=== PATIENT | male | born 1990 | race Caucasian/White ===

== ENCOUNTER 2020-02-14 16:36 | Emergency (ER) | payer SELFPAY ==
--- NOTE | 2020-02-14 21:36 | ER ---
Nurse's Notes [facility] Name: Tristen Carbajal Age: 29 yrs Sex: Male : 1990 Arrival Date: 02/14/2020 Time: 16:38 Bed Waiting Private MD: Diagnosis: Presentation: 02/13 16:39 Chief complaint: Patient states: right forearm infection from 2 weeks ago after cutting sv himself with a razor, and never got sutures for it. Coronavirus screen: Client denies travel out of the [place] in the last 14 days. At this time, the client does not indicate any symptoms associated with coronavirus-19. Ebola Screen: No symptoms or risks identified at this time. Risk Assessment: Do you want to hurt yourself or someone else? Patient reports no desire to harm self or others. Onset of symptoms was January 2020. 16:39 Method Of Arrival: Ambulatory sv 16:39 Acuity: LANDY 3 sv 16:41 Initial Sepsis Screen: Does the patient meet any 2 criteria? HR > 90 bpm. No. Patient's sv initial sepsis screen is negative. Does the patient have a suspected source of infection? Yes: Skin breakdown/wound. Triage Assessment: 16:43 General: Appears in no apparent distress. uncomfortable, Behavior is cooperative, sv appropriate for age, anxious, restless. Pain: Complains of pain in right arm and left arm. Neuro: Level of Consciousness is awake, alert, obeys commands, Oriented to person, place, time, situation, Gait is steady. Respiratory: Respiratory effort is even, unlabored. Historical: - Allergies: 16:41 Haldol; sv - PMHx: 16:41 Bipolar disorder; Depression; sv Assessment: 19:44 Reassessment: called out from the lobby to recheck vitals, no answer. ca1 Vital Signs: 16:41 BP 149 / 76; Pulse 112; Resp 20; Temp 98.8; Pulse Ox 99% ; Weight 90.72 kg; Height 5 sv ft. 6 in. (167.64 cm); 16:41 Body Mass Index 32.28 (90.72 kg, 167.64 cm) sv ED Course: 16:38 Patient arrived in ED. rg4 16:39 Arm band placed on. sv 16:41 Triage completed. sv 21:35 Patient's name was called from ER lobby. No response. Unable to locate patient. Will ca1 disposition as left without being seen by a provider. Administered Medications: No medications were administered Outcome: 21:35 Patient left the ED. ca1 Signatures: Jaquelin Seo RN RN Lesvia Phelps rg4 Елена Richardson RN RN ca1 Corrections: (The following items were deleted from the chart) 16:43 16:41 Pulse 112bpm; Resp 20bpm; Pulse Ox 99%; Temp 98.8F; 90.72 kg; Height 5 ft. 6 in.; sv BMI: 32.2; sv 16:44 16:39 Acuity: LANDY 4 sv sv
[2020-02-14 22:56] VITALS: BP 149/76; TEMP 98.8; O2SAT 99
== END 2020-02-14 21:35 | disposition left against medical advice (07) ==
LOC: ER 16:36
DX: Z53.21 Procedure and treatment not carried out due to patient leaving prior to being seen by health care provider (principal)
CPT/HCPCS: 99281

== ENCOUNTER 2020-02-16 09:21 | Inpatient (IN) | payer OTHER ==
[2020-02-16] MEDS ORDERED: NA CHLORIDE 0.9% 1,000 ML ONE ×3 (09:54→19:52)
[2020-02-16] MEDS ORDERED: RSI MEDICATION KIT IV ONE (09:54)
[2020-02-16] MEDS ORDERED: propofoL 1,000 MG/100 ML VIAL IV ONE ×3 (09:55→21:52)
[2020-02-16 10:01] LABS: Absolute Lymphocytes (CBC) 1.8 K/uL (0.7-4.9); Basophils % 0.4 % (0-1.3); Hematocrit 31.2 % (39.6-49.0); Lymphocytes % 19.8 % (15.3-44.8); MPV 8.5 fL (7.6-11.3); RBC Red Blood Cell Count 3.89 M/uL (4.33-5.43)
[2020-02-16] MEDS ORDERED: KETAMINE HCL 500 MG/5 ML VIAL ONE ×2 (10:03→17:05)
[2020-02-16 10:05] LABS: Protime INR 1.1
[2020-02-16 10:23] LABS: ALT/SGPT 40 U/L (12-78); AST/SGOT 67 U/L (15-37); Albumin 3.9 g/dL (3.4-5.0); Alkaline Phosphatase 93 U/L (45-117); BUN Blood Urea Nitrogen 16 mg/dL (7-18); Bicarbonate 25 mmol/L (21-32); Bilirubin Direct < 0.1 mg/dL (0-0.2); Bilirubin Total 0.4 mg/dL (0.2-1.0); Glucose Level 94 mg/dL (74-106); Potassium 3.3 mmol/L (3.5-5.1); Protein, Total 7.1 g/dL (6.4-8.2); Sodium Level 142 mmol/L (136-145)
[2020-02-16 10:41] LABS: Barbiturates NEGATIVE (NEGATIVE); Benzodiazepines POSITIVE (NEGATIVE); Cocaine NEGATIVE (NEGATIVE); METHAMPHETAM POSITIVE (NEGATIVE); Methadone NEGATIVE (NEGATIVE); Opiates NEGATIVE (NEGATIVE); Phencyclidine NEGATIVE (NEGATIVE); THC Cannibis POSITIVE (NEGATIVE)
[2020-02-16 11:00] LABS: Urine Blood NEGATIVE (NEG); Urine Glucose NEGATIVE (NEG); Urine Protein TRACE (NEG); Urine Specific Gravity >1.030 (1.005-1.030); Urine pH 5.5 (5.0-7.0)
[2020-02-16] MEDS ORDERED: ROCURONIUM 50 MG/5 ML VIAL IV ONE ×5 (11:05→17:05)
--- NOTE | 2020-02-16 11:18 | RAD REPORT ---
EXAM DESCRIPTION: RAD - Chest Single View - 02/16/2020 10:32 am CLINICAL HISTORY: post intubation TECHNIQUE: AP portable chest image was obtained 02/16/2020 10:32 paredes supine positioning . FINDINGS: Endotracheal tube is in place with the tip at the T3-4 level, top of the aortic arch. NG t ube extends below the diaphragm with the tip off the field of view. No pulmonary edema or focal lung parenchymal process seen. Heart and vasculature are normal. No measu rable pleural effusion and no pneumothorax. No acute bony abnormality seen. No acute aortic findings suspected. IMPRESSION: ET tube and NG tube in good position. No pulmonary edema, failure or other acute chest finding identifiable.
[2020-02-16] MEDS ORDERED: CEFAZOLIN/SWI 1gm 1 GM/10 ML SYR ONE (11:51)
--- NOTE | 2020-02-16 12:17 | EDPHYS ---
Physician Documentation [facility] Name: Tristen Carbajal Age: 29 yrs Sex: Male : 1990 Arrival Date: 02/16/2020 Time: 09:33 Bed 6 Private MD: ED Physician Som Abdullahi HPI: 02/15 11:32 This 29 yrs old Male presents to ER via EMS with complaints of AMS, SI. jr8 11:32 EMS reports being called out after police was on scene for man wondering on rode with jr8 multiple cuts to body who was combative on scene shouting that he wanted to kill himself. EMS stated that after he was detained by police started to yell at them and say he was going to cut them as well. Patient had razor blades in mouth that they had to take out. Was chemically restrained on scene with ketamine, versed, and ativan. Police had applied tourniquet to left arm for steady continuous bleeding . Onset: The symptoms/episode began/occurred acutely, today. It is unknown whether or not the patient has had similar symptoms in the past. It is unknown whether or not the patient has recently seen a physician. Historical: - Allergies: 10:02 Unable to obtain; ph - Home Meds: 10:02 Unable to obtain [Active]; ph - PMHx: 10:02 Unable to obtain; ph - PSHx: 10:02 Unable to obtain; ph - Immunization history:: Adult Immunizations unknown. - Social history:: Smoking status: unknown. ROS: 11:32 Unable to obtain ROS due to altered mental status. jr8 Exam: 11:32 Cardiovascular: Rate: normal, Rhythm: regular, Pulses: Pulses are 2+ in right radial jr8 artery, right dorsalis pedis artery, left radial artery and left dorsalis pedis artery. 11:32 Respiratory: the patient does not display signs of respiratory distress, Respirations: normal, Breath sounds: are clear throughout, no bronchial sounds, no decreased breath sounds, no rales, rhonchi, no stridor, no wheezing. 11:32 Abdomen/GI: Inspection: abdomen appears normal, Bowel sounds: active, Palpation: soft, in all quadrants. 11:32 Back: no signs of trauma. No step offs . 11:32 Musculoskeletal/extremity: ROM: intact in all extremities, Pulses: noted to be 2+ in the right radial artery, right dorsalis pedis artery, left radial artery and left dorsalis pedis artery, Perfusion: the patient is normally perfused throughout, pink, warm. 11:32 Skin: Multiple old and new lacerations noted to bilateral neck and upper extremities. Bleeding controlled to left arm without tourniquet. Largest laceration about 4 cm in length . 11:32 Neuro: Orientation: Not oriented to person, place, time, situation, Mentation: confused, unable to follow commands, seizure activity, is not displayed by the patient, Abnormal movements: there are no abnormal movements. Vital Signs: 09:56 BP 146 / 113; Pulse 101; Resp 18; Temp 97.9; Pulse Ox 100% on 30% FiO2 ETT vent; Weight tw2 80 kg; 10:56 BP 125 / 86; Pulse 84; Resp 14; Pulse Ox 100% on ETT vent; tw2 11:45 BP 103 / 62; Pulse 81; Resp 14; Pulse Ox 100% on ETT vent; tw2 12:45 BP 106 / 75; Pulse 75; Resp 14; Pulse Ox 100% on ETT vent; tw2 13:15 BP 117 / 83; Pulse 98; Resp 16; Pulse Ox 100% on 30% FiO2 ETT vent; ph 13:45 BP 121 / 85; Pulse 92; Resp 18; Pulse Ox 100% on 30% FiO2 ETT vent; ph 14:15 BP 139 / 100; Pulse 94; Resp 18; Temp 97.5(TE); Pulse Ox 100% on 30% FiO2 ETT vent; ph 14:57 BP 119 / 84; Pulse 85; Resp 18; Pulse Ox 100% on 30% FiO2 ETT vent; ph 15:30 BP 121 / 88; Pulse 85; Resp 18; Pulse Ox 100% on 30% FiO2 ETT vent; ph 16:00 BP 120 / 89; Pulse 91; Resp 18; Pulse Ox 100% on 30% FiO2 ETT vent; ph 16:30 BP 118 / 88; Pulse 88; Resp 18; Pulse Ox 100% on 30% FiO2 ETT vent; ph 17:12 BP 132 / 87; Pulse 94; Resp 16; Pulse Ox 100% on 30% FiO2 ETT vent; ph 17:45 BP 126 / 92; Pulse 89; Resp 16; Temp 97.6(TE); Pulse Ox 100% on ETT vent; tw2 18:00 BP 132 / 91; Pulse 88; Resp 16; Pulse Ox 100% on ETT vent; tw2 18:15 BP 121 / 82; Pulse 86; Resp 16; Pulse Ox 100% on ETT vent; tw2 Ventilator: 09:56 Fi02: 30%; Rate: 16min; T.V.: 550ml; Peep: 5cm; ET tube: 7.5 mm (Oral); tw2 09:56 per Zohreh,RT tw2 MDM: 10:04 Patient medically screened. jr8 12:14 Data reviewed: vital signs, nurses notes, lab test result(s), EKG, radiologic studies, jr8 plain films. 12:14 Data interpreted: Pulse oximetry: on ventilator is 100 %. Interpretation: normal. jr8 Counseling: I had a detailed discussion with the patient and/or guardian regarding: the historical points, exam findings, and any diagnostic results supporting the discharge/admit diagnosis, lab results, radiology results, the need for further work-up and treatment in the hospital. 02/15 09:42 Order name: Glucose, Ancillary Testing; Complete Time: 10:37 EDMS 02/15 09:54 Order name: Acetaminophen; Complete Time: 10:37 ph 02/15 09:54 Order name: Basic Metabolic Panel; Complete Time: 10:37 ph 02/15 09:54 Order name: CBC with Diff; Complete Time: 10:37 ph 02/15 09:54 Order name: ETOH Level; Complete Time: 10:37 ph 02/15 09:54 Order name: Hepatic Function; Complete Time: 10:37 ph 02/15 09:54 Order name: PT-INR; Complete Time: 10:37 ph 02/15 09:54 Order name: Ptt, Activated; Complete Time: 10:37 ph 02/15 09:54 Order name: Salicylate; Complete Time: 10:37 ph 02/15 09:54 Order name: Urine Drug Screen; Complete Time: 11:07 ph 02/15 09:54 Order name: Type And Screen; Complete Time: 16:54 ph 02/15 10:20 Order name: Urine Dipstick--Ancillary (enter results); Complete Time: 11:07 bd 02/15 11:07 Order name: Antibody Identification; Complete Time: 16:54 EDMS 02/15 11:25 Order name: Hemoglobin; Complete Time: 12:10 jr8 02/15 10:05 Order name: XRAY Chest (1 view); Complete Time: 11:23 jr8 02/15 12:14 Order name: XRAY Abdomen 1 View (KUB) jr8 02/15 13:00 Order name: RAD; Complete Time: 13:18 EDMS 02/15 13:11 Order name: ABO/RH no charge; Complete Time: 13:18 EDMS 02/15 16:29 Order name: Antigen type; Complete Time: 16:54 EDMS 02/15 20:25 Order name: Hemoglobin; Complete Time: 20:27 EDMS 02/15 20:25 Order name: Hematocrit; Complete Time: 20:27 EDMS 02/15 21:30 Order name: Glucose, Ancillary Testing; Complete Time: 21:36 EDMS 02/16 06:22 Order name: Comprehensive Metabolic Panel; Complete Time: 09:13 EDMS 02/16 06:22 Order name: Magnesium; Complete Time: 09:13 EDMS 02/16 06:31 Order name: CBC with Automated Diff; Complete Time: 09:13 EDMS 02/16 09:04 Order name: RAD; Complete Time: 09:13 EDMS 02/16 16:54 Order name: CORONAVIRUS EDMS 02/16 17:53 Order name: SARS-COV-2 RT PCR; Complete Time: 17:55 EDMS 02/15 09:54 Order name: EKG; Complete Time: 09:54 ph 02/15 09:54 Order name: EKG - Nurse/Tech; Complete Time: 10:39 ph 02/15 09:54 Order name: IV Saline Lock; Complete Time: 12:36 ph 02/15 09:54 Order name: Labs collected and sent; Complete Time: 12:36 ph 02/15 09:54 Order name: Urine Dipstick-Ancillary (obtain specimen); Complete Time: 10:38 ph 02/15 10:06 Order name: Brown; Complete Time: 10:30 jr8 02/15 10:06 Order name: NG Tube; Complete Time: 10:29 jr8 02/15 10:06 Order name: Restraint:Violent/Self Destructive (Adult:18yo or >); Complete Time: 10:29 jr8 02/15 10:37 Order name: Restraint:Non-Violent; Complete Time: 10:38 jr8 02/15 11:00 Order name: Labs - recollect needed: collect abo\E\rh no charge; Complete Time: 12:31 bd 02/15 12:46 Order name: CONS Physician Consult EDKS 02/16 11:00 Order name: Diet Regular; Complete Time: 11:01 ph Administered Medications: 09:42 Drug: NS 0.9% 1000 ml Route: IV; Rate: 1 bolus; Site: right hand; ph 11:30 Follow up: Response: No adverse reaction; IV Status: Completed infusion; IV Intake: tw2 1000ml 09:43 Drug: Etomidate 20 mg Route: IVP; Site: right hand; ph 09:47 Follow up: Response: No adverse reaction; Marked relief of symptoms tw2 09:43 Drug: Rocuronium 80 mg Route: IVP; Site: right hand; ph 12:37 Follow up: Response: No adverse reaction; Marked relief of symptoms tw2 09:46 Drug: Ketamine 2 mg/kg {Note: 200 mg dose given per Carter R, PA.} Route: IVP; Site: ph right hand; 12:36 Follow up: Response: No adverse reaction; Marked relief of symptoms tw2 09:50 Drug: Propofol 5 mcg/kg/min {Note: initiated at 10 mcg/kg/min.} Route: IV; Rate: ph calculated rate; Site: right hand; 10:52 Drug: Rocuronium 80 mg Route: IVP; Site: right jugular; ph 11:42 Follow up: Response: No adverse reaction tw2 11:35 Drug: Ancef 1 grams Route: IVPB; Site: right jugular; tw2 11:41 Follow up: Response: No adverse reaction; IV Status: Completed infusion; IV Intake: [id number] 11:41 Drug: NS 0.9% 1000 ml Route: IV; Rate: 125 ml/hr; Site: right hand; tw2 19:35 Follow up: Response: No adverse reaction; IV Status: Infusion continued upon admission ph 12:34 Drug: Ketamine 2 mg/kg {Note: 200 mg given per Carter R., PA.} Route: IVP; Site: right ph jugular; 12:40 Follow up: Response: No adverse reaction; Marked relief of symptoms ph 13:14 Drug: Rocuronium 100 mg Route: IVP; Site: right jugular; ph 13:20 Follow up: Response: No adverse reaction; Patient is sedated ph 13:30 Follow up: Response: No adverse reaction; Marked relief of symptoms ph 14:35 Drug: Rocuronium 80 mg Route: IVP; Site: right jugular; ph 14:40 Follow up: Response: No adverse reaction; Patient is sedated ph 15:44 Drug: Rocuronium 60 mg Route: IVP; Site: right jugular; ph 15:50 Follow up: Response: No adverse reaction; Patient is sedated ph 16:54 Drug: Rocuronium 50 mg Route: IVP; Site: right jugular; ph 17:00 Follow up: Response: No adverse reaction; Patient is sedated ph 16:55 Drug: Ketamine 2 mg/kg {Note: 200 mg given per PA. Carter} Route: IVP; Site: right ph jugular; 17:00 Follow up: Response: No adverse reaction; Patient is sedated ph 18:00 Drug: Versed 3 mg Route: IVP; Site: right jugular; tw2 18:28 Follow up: Response: No adverse reaction; Marked relief of symptoms tw2 19:30 Drug: Versed 3 mg Route: IVP; Site: right jugular; 22:05 Follow up: Response: No adverse reaction Disposition: 02/17 06:09 Co-signature as Attending Physician, Som Abdullahi MD I agree with the assessment and kdr plan of care. Disposition: 02/16/20 12:16 Hospitalization ordered by Edson Morgan for Inpatient Admission. Preliminary diagnosis are Poisoning by amphetamines, undetermined, Suicide attempt, Homicidal and suicidal ideations. - Bed requested for [facility] ER HOLD. - Status is Inpatient Admission. mg2 - Condition is Fair. - Problem is new. - Symptoms have improved. Critical care time excluding procedures: 02/16 20:47 Critical care time: Bedside Care: 20 minutes, Consultation: 15 minutes, Family jr8 Intervention: 10 minutes. Total time: 45 minutes Signatures: Dispatcher [employer] EDMS Verito Rose Kevin, MD MD [facility] [address] Carter Soto PA PA jr8 Hall, Patricia, RN RN Carmelina Mendoza RN RN 2 Derian Guerrero Ag Adams RN RN mg2 Corrections: (The following items were deleted from the chart) 02/15 17:59 12:16 Hospitalization Ordered by Edson Morgan MD for Inpatient Admission. Preliminary bd diagnosis is Poisoning by amphetamines, undetermined; Suicide attempt; Homicidal and suicidal ideations. Bed requested for Intensive Care Unit. Status is Inpatient Admission. Condition is Fair. Problem is new. Symptoms have improved. jr8 02/16 21:20 02/15 17:59 02/16/2020 12:16 Hospitalization Ordered by Edson Morgan MD for Inpatient mg2 Admission. Preliminary diagnosis is Poisoning by amphetamines, undetermined; Suicide attempt; Homicidal and suicidal ideations. Bed requested for [facility] ER HOLD. Status is Inpatient Admission. Condition is Fair. Problem is new. Symptoms have improved. bd
--- NOTE | 2020-02-16 12:17 | ER ---
Nurse's Notes [facility] Name: Tristen Carbajal Age: 29 yrs Sex: Male : 1990 Arrival Date: 02/16/2020 Time: 09:33 Bed 6 Private MD: Diagnosis: Poisoning by amphetamines, undetermined;Suicide attempt;Homicidal and suicidal ideations Presentation: 02/15 09:40 Chief complaint: EMS states: pt is an unaged male found on side of road with multiple tw2 lacerations to the right and left arm, the left arm was dripping blood, PD applied a tourniquet to LEFT arm, pt was wild and combative, swinging at PD and EMS crew, pt had a razor blade in his mouth, he spit it at EMS crew and stated i should have cut yall, was given 400 Ketamine IM, 5 Versed, and 2 Ativan by EMS crew to calm pt down, no iv access upon arrival. 10:02 Chief complaint:. Coronavirus screen: Pt combative and uncooperative at time of arrival, unable to obtain information for COVID screen. Ebola Screen: No symptoms or risks identified at this time. Initial Sepsis Screen: Does the patient meet any 2 criteria? No. Patient's initial sepsis screen is negative. Does the patient have a suspected source of infection? No. Patient's initial sepsis screen is negative. Risk Assessment: Do you want to hurt yourself or someone else? Patient reports desire/thoughts of hurting themselves or someone else. Provider notified. Onset of symptoms was February 16, 2020. 10:02 Acuity: LANDY 1 10:02 Method Of Arrival: EMS: [facility] Triage Assessment: 09:40 General: Appears Behavior is combative, inappropriate for age, restless, uncooperative. tw2 Pain: Unable to use pain scale. Patient appears restless. Neuro: Level of Consciousness is confused, listless, Oriented to none. Cardiovascular: Patient's skin is warm and dry. Respiratory: Airway is patent Respiratory effort is even, unlabored, Respiratory pattern is regular, symmetrical, pt on NRB at 15L at this time. RT at bedside. Derm: multiple lacerations noted to right and left arm, tourniquet on left arm removed by SHRUTI Almazan, pressure dressing applied and arm wrapped and secured with tape, multiple old lacerations in various stages of healing noted to b/l arms and legs, and neck area. Historical: - Allergies: 10:02 Unable to obtain; ph - Home Meds: 10:02 Unable to obtain [Active]; ph - PMHx: 10:02 Unable to obtain; ph - PSHx: 10:02 Unable to obtain; ph - Immunization history:: Adult Immunizations unknown. - Social history:: Smoking status: unknown. Screenin:07 Abuse screen: Denies threats or abuse. Denies injuries from another. it is believed ph that pt's injuries are self inflicted. Nutritional screening: No deficits noted. Tuberculosis screening: No symptoms or risk factors identified. Fall Risk None identified. Assessment: 09:40 Reassessment: see triage assessment. tw2 10:52 Reassessment: pt bucking the vent, moving head around, provider notified, assistance tw2 called to help suction patient and medicated as ordered. 11:45 Reassessment: Patient appears in no apparent distress at this time. pt remains sedated tw2 and intubated at this time. 12:34 Reassessment: hospitalist at bedside at this time, pt moving head around and becoming tw2 restless, provider notified and medicated as ordered. 13:15 Reassessment: Pt restless, disconnecting vent circuit, pt medicated, see MAR. ph Reassessment: Patient and/or family updated on plan of care and expected duration. Pain level reassessed. 13:30 Reassessment: Patient appears in no apparent distress at this time. pt remains sedated tw2 and intubated at this time. 14:30 Reassessment: Patient appears in no apparent distress at this time. pt remains sedated tw2 and intubated at this time. 14:35 Reassessment: Patient appears in no apparent distress at this time. Pt again restless, ph unable to follow commands, see MAR, VSS. 15:30 Reassessment: Patient appears in no apparent distress at this time. pt remains tw2 intubated and sedated at this time. 15:45 Reassessment: Patient appears in no apparent distress at this time. Pt restless, unable ph to follow commands, VSS, ET tube stabilized to prevent disconnection from vent, see MAR. 17:00 Reassessment: Patient appears in no apparent distress at this time. Pt restless, unable ph to follow commands, see MAR. 18:00 Reassessment: provider at bedside assessing LEFT arm lacerations. pt began moving tw2 around and restless, medicated as ordered. 02/16 21:17 Reassessment: report given to EMS. patient on [place]. police came and accompanied the [facility]. Vital Signs: 02/15 09:56 BP 146 / 113; Pulse 101; Resp 18; Temp 97.9; Pulse Ox 100% on 30% FiO2 ETT vent; Weight tw2 80 kg; 10:56 BP 125 / 86; Pulse 84; Resp 14; Pulse Ox 100% on ETT vent; tw2 11:45 BP 103 / 62; Pulse 81; Resp 14; Pulse Ox 100% on ETT vent; tw2 12:45 BP 106 / 75; Pulse 75; Resp 14; Pulse Ox 100% on ETT vent; tw2 13:15 BP 117 / 83; Pulse 98; Resp 16; Pulse Ox 100% on 30% FiO2 ETT vent; ph 13:45 BP 121 / 85; Pulse 92; Resp 18; Pulse Ox 100% on 30% FiO2 ETT vent; ph 14:15 BP 139 / 100; Pulse 94; Resp 18; Temp 97.5(TE); Pulse Ox 100% on 30% FiO2 ETT vent; ph 14:57 BP 119 / 84; Pulse 85; Resp 18; Pulse Ox 100% on 30% FiO2 ETT vent; ph 15:30 BP 121 / 88; Pulse 85; Resp 18; Pulse Ox 100% on 30% FiO2 ETT vent; ph 16:00 BP 120 / 89; Pulse 91; Resp 18; Pulse Ox 100% on 30% FiO2 ETT vent; ph 16:30 BP 118 / 88; Pulse 88; Resp 18; Pulse Ox 100% on 30% FiO2 ETT vent; ph 17:12 BP 132 / 87; Pulse 94; Resp 16; Pulse Ox 100% on 30% FiO2 ETT vent; ph 17:45 BP 126 / 92; Pulse 89; Resp 16; Temp 97.6(TE); Pulse Ox 100% on ETT vent; tw2 18:00 BP 132 / 91; Pulse 88; Resp 16; Pulse Ox 100% on ETT vent; tw2 18:15 BP 121 / 82; Pulse 86; Resp 16; Pulse Ox 100% on ETT vent; tw2 ED Course: 09:33 Patient arrived in ED. ph 09:38 Brown cath inserted, using sterile technique, 16 Fr., by machinist tool and die, balloon inflated, to ph gravity drainage, urine specimen collected. returned peri urine. Maintain EMS IV. Dressing intact. Good blood return noted. Site clean \T\ dry. Gauge \T\ site: 20 R hand. 09:39 Carmelina Mendoza RN is Primary Nurse. tw2 09:44 Assisted provider with intubation using 7.5 mm ETT via oral route. ET tube secured at ph 23cm at the teeth. Set up intubation tray. Intubated by Carter BAHENA Placement verified by CO2 detector w/ + color change, auscultating bilateral breath sounds, Patient tolerated well. 09:45 Inserted saline lock: 20 gauge in right hand, using aseptic technique. Blood collected. tw2 10:00 Inserted saline lock: 18 gauge in right EJ, using aseptic technique. ,using aseptic tw2 technique. by Carter BAHENA Blood collected. 10:04 Triage completed. ph 10:04 Carter Soto PA is PHCP. jr8 10:04 Som Abdullahi MD is Attending Physician. jr8 10:04 Patient has correct armband on for positive identification. Bed in low position. Call ph light in reach. Side rails up X2. manager monitoring on. Pulse ox on. NIBP on. Warm blanket given. 10:07 Arm band placed on Patient placed in an exam room, on a stretcher, on oxygen, on ph youth nutritional monitor, on pulse oximetry. 10:20 OG 18 f to intermittent suction, returned gastric content, bowel sounds auscultated. tw2 10:33 XRAY Chest (1 view) In Process Unspecified. EDMS 12:15 Edson Morgan MD is Hospitalizing Provider. jr8 19:00 Report given to ASMITA Meeks. tw2 02/16 19:47 administrative approval given by [facility]/ patient has been accepted to [address]/ Dr. Crow has accepted the patient in transfer. 20:43 Patient did not have IV access during this emergency room visit. IV discontinued, mh5 Pressure dressing applied. Restraints: 02/15 09:50 Non-Violent Restraint: Order obtained. Initiated on February 16, 2020 at 09:50 Restraint tw2 Education provided to family/significant other/legally authorized mechanical service representative. Actions/Behavior observed: Confused/disoriented, unable to follow instructions, Less restrictive alternatives attempted: decrease environmental stimuli, 1:1 patient care, placed near Nurse station, reoriented to location, medicated for pain/anxiety, repositioned, Alternative interventions: Ineffective. Clinical justification for use: airway protection, line protection, patient safety, Mental status: agitated/restless, confused, Cognition: Unable to assess. poor judgement, poor safety awareness, impulsive, poor attention/concentration, unable to follow commands, Circulation: Within defined parameters (based on Cardiovascular assessment) Skin integrity: Within defined parameters (based on Integumentary assessment) Signs of injury related to restraint: No injuries noted. Range of Motion (ROM): performed. Restraint status: Soft wrist restraint (Right) Started. Soft wrist restraint (Left) Started. 11:50 Non-Violent Restraint: Actions/Behavior observed: unable to follow instructions, pt tw2 remains intubated and sedated at this time.. Clinical justification for use: airway protection, line protection, patient safety, Mental status: Cognition: poor judgement, poor safety awareness, Circulation: Within defined parameters (based on Cardiovascular assessment) Skin integrity: Within defined parameters (based on Integumentary assessment) Range of Motion (ROM): performed. Restraint status: Soft wrist restraint (Right) Continued. Soft wrist restraint (Left) Continued. Criteria to discontinue Restraint not met. Restraint continued. 13:50 Non-Violent Restraint: Actions/Behavior observed: pt remains intubated and sedated . tw2 Clinical justification for use: airway protection, line protection, patient safety, Cognition: poor safety awareness, unable to follow commands, Circulation: Within defined parameters (based on Cardiovascular assessment) Skin integrity: Within defined parameters (based on Integumentary assessment) Range of Motion (ROM): performed. Restraint status: Soft wrist restraint (Right) Continued. Soft wrist restraint (Left) Continued. Criteria to discontinue Restraint not met. Restraint continued. 15:50 Non-Violent Restraint: Actions/Behavior observed: Confused/disoriented, unable to tw2 follow instructions, Clinical justification for use: airway protection, line protection, patient safety, Cognition: Unable to assess. poor safety awareness, impulsive, Circulation: Within defined parameters (based on Cardiovascular assessment) Skin integrity: Within defined parameters (based on Integumentary assessment) Signs of injury related to restraint: No injuries noted. Range of Motion (ROM): performed. Restraint status: Soft wrist restraint (Right) Continued. Soft wrist restraint (Left) Continued. Criteria to discontinue Restraint not met. Restraint continued. 17:50 Non-Violent Restraint: Clinical justification for use: airway protection, line tw2 protection, patient safety, Cognition: Unable to assess. poor judgement, poor safety awareness, Circulation: Within defined parameters (based on Cardiovascular assessment) Signs of injury related to restraint: No injuries noted. Range of Motion (ROM): performed. Restraint status: Soft wrist restraint (Right) Continued. Soft wrist restraint (Left) Continued. Criteria to discontinue Restraint not met. Restraint continued. Administered Medications: 09:42 Drug: NS 0.9% 1000 ml Route: IV; Rate: 1 bolus; Site: right hand; ph 11:30 Follow up: Response: No adverse reaction; IV Status: Completed infusion; IV Intake: tw2 1000ml 09:43 Drug: Etomidate 20 mg Route: IVP; Site: right hand; ph 09:47 Follow up: Response: No adverse reaction; Marked relief of symptoms tw2 09:43 Drug: Rocuronium 80 mg Route: IVP; Site: right hand; ph 12:37 Follow up: Response: No adverse reaction; Marked relief of symptoms tw2 09:46 Drug: Ketamine 2 mg/kg {Note: 200 mg dose given per PA. Norah} Route: IVP; Site: ph right hand; 12:36 Follow up: Response: No adverse reaction; Marked relief of symptoms tw2 09:50 Drug: Propofol 5 mcg/kg/min {Note: initiated at 10 mcg/kg/min.} Route: IV; Rate: ph calculated rate; Site: right hand; 10:52 Drug: Rocuronium 80 mg Route: IVP; Site: right jugular; ph 11:42 Follow up: Response: No adverse reaction tw2 11:35 Drug: Ancef 1 grams Route: IVPB; Site: right jugular; tw2 11:41 Follow up: Response: No adverse reaction; IV Status: Completed infusion; IV Intake: [id number] 11:41 Drug: NS 0.9% 1000 ml Route: IV; Rate: 125 ml/hr; Site: right hand; tw2 19:35 Follow up: Response: No adverse reaction; IV Status: Infusion continued upon admission ph 12:34 Drug: Ketamine 2 mg/kg {Note: 200 mg given per PA. Melvina} Route: IVP; Site: right ph jugular; 12:40 Follow up: Response: No adverse reaction; Marked relief of symptoms ph 13:14 Drug: Rocuronium 100 mg Route: IVP; Site: right jugular; ph 13:20 Follow up: Response: No adverse reaction; Patient is sedated ph 13:30 Follow up: Response: No adverse reaction; Marked relief of symptoms ph 14:35 Drug: Rocuronium 80 mg Route: IVP; Site: right jugular; ph 14:40 Follow up: Response: No adverse reaction; Patient is sedated ph 15:44 Drug: Rocuronium 60 mg Route: IVP; Site: right jugular; ph 15:50 Follow up: Response: No adverse reaction; Patient is sedated ph 16:54 Drug: Rocuronium 50 mg Route: IVP; Site: right jugular; ph 17:00 Follow up: Response: No adverse reaction; Patient is sedated ph 16:55 Drug: Ketamine 2 mg/kg {Note: 200 mg given per PA. Carter} Route: IVP; Site: right ph jugular; 17:00 Follow up: Response: No adverse reaction; Patient is sedated ph 18:00 Drug: Versed 3 mg Route: IVP; Site: right jugular; tw2 18:28 Follow up: Response: No adverse reaction; Marked relief of symptoms tw2 19:30 Drug: Versed 3 mg Route: IVP; Site: right jugular; wh 22:05 Follow up: Response: No adverse reaction Intake: 11:30 IV: 1000ml; Total: 1000ml. tw2 11:41 IV: 10ml; Total: 1010ml. tw2 Output: 18:26 Urine: 700ml (Brown); Total: 700ml. tw2 18:26 Gastric: 700ml (OGT); Total: 1400ml. tw2 Ventilator: 09:56 Fi02: 30%; Rate: 16min; T.V.: 550ml; Peep: 5cm; ET tube: 7.5 mm (Oral); tw2 09:56 per ZohrehRT tw2 Outcome: 12:16 Decision to Hospitalize by Provider. jr8 02/16 21:19 Transferred by ground EMS Transfer form completed. mg2 Condition: stable Instructed on the need for transfer, Demonstrated understanding of instructions. 21:20 Patient left the ED. mg2 Signatures: Dispatcher [employer] EDMS Carter Soto PA PA jr8 Ariana Wayne, RN RN Carmelina Mendoza RN RN tw2 Junie Joshua [facility] Derian Marva Marquez [facility] Ag Adams RN RN mg2 Corrections: (The following items were deleted from the chart) 02/15 11:04 09:56 BP 146 / 113; Pulse 101bpm; Resp 18bpm; Pulse Ox 100%; Temp 97.9F; 80 kg; ph tw2 15:50 14:15 BP 139 / 100; Pulse 94bpm; Resp 18bpm; Pulse Ox 100% FiO2 30% vent; ph ph 19:47 09:40 General: Appears Behavior is uncooperative, tw2 tw2 19:48 15:30 Reassessment: Patient appears in no apparent distress at this time. tw2 tw2
--- NOTE | 2020-02-16 12:58 | RAD REPORT ---
EXAM DESCRIPTION: RAD - Abdomen 1 View (KUB) - 02/16/2020 12:51 pm CLINICAL HISTORY: r/o FB Pain FINDINGS: Tip of the nasogastric tube is in the distal stomach. No radiopaque foreign body evident.
--- NOTE | 2020-02-16 12:58 | P.HP ---
Certification for Inpatient Patient admitted to: Inpatient With expected LOS: >2 Midnights Practitioner: I am a practitioner with admitting privileges, knowledge of patient current condition, hospital course, and medical plan of care. Services: Services provided to patient in accordance with Admission requirements found in Title 42 Section 412.3 of the Code of Federal Regulations Patient History Date of Service: 02/16/20 Reason for admission: suicide attempt, intubated History of Present Illness: 29yo male brought in by EMS - found on side of street with multiple cuts on bod y, combative on scene, and shouting that he wanted to kill himself. EMS reported he was detained by police and started to yell a tthem and threatened to cut them as well. He was noted to have razor blades in mouth that were removed. He was chemically restrained on scene with ketamine, versed, and ativan. A tourniquet was applied to L arm for steady continuous bleeding. He was noted to have prior/old healed lacerations on arms In the ED, patient was significantly combative and threatening personnel, he was intubated by ED provider. Labwork with Hgb: 10.2 -> 9.6 on recheck, pressure dressing applied. no more bleeding noted. Ur tox positive for THC, amphetamines, benzos. - Past Medical/Surgical History Past Medical History: Unable to obtain Past Surgical History: Unable to obtain - Social History Smoking Status: Unknown if ever smoked Review of Systems is unable to be obtained Physical Examination - Physical Exam General: Other (intubated and sedated) HEENT: Atraumatic Neck: Other (old / healed laceration scars on left base of neck) Respiratory: Other (intubated, no wheeze/crackles) Cardiovascular: No edema, Regular rate/rhythm Gastrointestinal: Soft and benign, Non-distended Integumentary: Other (multiple lacerations along left upper extremity at varying ages, wound dressing in place on upper arm) Neurological: Other (intubated/sedated) - Studies Laboratory Data (last 24 hrs) 02/16/20 11:48: Hgb 9.6 L 02/16/20 09:25: PT 13.0 H, INR 1.10, APTT 29.9 02/16/20 09:25: WBC 9.3, Hgb 10.2 L, Hct 31.2 L, Plt Count 275 02/16/20 09:25: Sodium 142, Potassium 3.3 L, BUN 16, Creatinine 1.03, Glucose 94, Total Bilirubin 0.4, AST 67 H, ALT 40, Alkaline Phosphatase 93 Assessment and Plan - Advance Directives Does patient have a Living Will: No Does patient have a Durable POA for Healthcare: No Physician Review Additional Text: Suicide attempt multiple LUE lacerations with bleeding Combative / Agressive unknown psych history -will monitor H/H, bleeding has stopped for now, continue to watch -intubated/sedated, will continue for now -pt with emergency fci order, will consult psych / mental health once extubated, pt suicidal and would likely benefit from inpatient psych, unsafe to go home -will attempt again to reach out to family to obtain more information -consult pulm for assistance with vent management -monitor labs VTE: SCDs given bleed Dispo: hospitalization > 2days, likely inpatient psych Critical Care: Yes (30minutes) Time Spent Managing Pts Care (In Minutes): 60
[2020-02-16] MEDS ORDERED: ETOMIDATE 20 MG/10 ML VIAL IV ONE (14:52)
--- NOTE | 2020-02-16 17:32 | EKG ---
Test Date: 2020-02-16 Test Time: 09:35:15 Business Continuity Consultant: MEASUREMENT RESULTS: Intervals: Rate: 96 OR: 142 QRSD: 90 QT: 344 QTc: 434 [place]: P: 73 OR: 142 QRS: 75 T: 59 INTERPRETIVE STATEMENTS: Normal sinus rhythm Normal ECG No previous ECG available for comparison Electronically Signed On 02-16-20 17:31:16 THUMB SEWER by Jose Daniel
[2020-02-16] MEDS ORDERED: MIDAZOLAM HCL 2 MG/2 ML INJ ONE ×3 (18:14→22:04)
[2020-02-16 19:31] VITALS: BMI 26.6
[2020-02-16] MEDS ORDERED: NA CHLORIDE 0.9% 1,000 ML IV SCH (19:31)
[2020-02-16] MEDS ORDERED: NA CHLORIDE 0.9% 250 ML IV PRN (19:31)
[2020-02-16] MEDS ORDERED: FAMOTIDINE 20 MG/2 ML VIAL IV ONE ×2 (19:52→19:54)
[2020-02-16] MEDS: FAMOTIDINE 20 MG/2 ML VIAL IV SCH (20:01)
[2020-02-16 20:24] LABS: Hematocrit 29.4 % (39.6-49.0)
[2020-02-16] MEDS: LORazepam 2 MG/ML VIAL IV PRN ×2 (20:42→23:51)
[2020-02-16] MEDS ORDERED: LORazepam 2 MG/ML VIAL ONE (20:52)
[2020-02-16] MEDS ORDERED: TETANUS & DIPHTHERIA TOX,ADULT 0.5 ML VIAL IMVAC ONE (21:28)
[2020-02-16] MEDS: propofoL 1,000 MG/100 ML VIAL IV PRN (21:51)
[2020-02-16] MEDS: MIDAZOLAM HCL 2 MG/2 ML INJ IV PRN (21:51)
[2020-02-16] MEDS ORDERED: TETANUS & DIPHTHERIA TOX,ADULT 0.5 ML VIAL ONE (21:59)
[2020-02-16] MEDS ORDERED: D5 0.45 NS 1,000 ML IV SCH (22:00)
[2020-02-16] MEDS ORDERED: D5 0.45 NS 1,000 ML IV ONE (22:04)
[2020-02-16] MEDS: FENTANYL CITR 100 MCG/2 ML IV PRN (22:14)
[2020-02-16] MEDS ORDERED: FENTANYL CITR 100 MCG/2 ML ONE (22:25)
[2020-02-17] MEDS ORDERED: LORazepam 2 MG/ML VIAL ONE ×5 (00:04→19:08)
[2020-02-17] MEDS ORDERED: CEFAZOLIN/NS 1gm 1 GM/50 ML BAG IVPB SCH (01:00)
[2020-02-17] MEDS ORDERED: CEFAZOLIN IVP SCH (01:00)
[2020-02-17] MEDS ORDERED: WATER FOR INJ STERILE IVP SCH (01:00)
[2020-02-17] MEDS ORDERED: propofoL 1,000 MG/100 ML VIAL IV ONE ×2 (01:52→06:12)
[2020-02-17] MEDS: propofoL 1,000 MG/100 ML VIAL IV PRN ×2 (02:22→06:01)
[2020-02-17] MEDS ORDERED: MIDAZOLAM HCL 2 MG/2 ML INJ ONE ×2 (02:26→08:22)
[2020-02-17] MEDS ORDERED: FENTANYL CITR 100 MCG/2 ML ONE ×2 (02:27→10:44)
[2020-02-17] MEDS: FENTANYL CITR 100 MCG/2 ML IV PRN ×2 (02:32→11:17)
[2020-02-17] MEDS: LORazepam 2 MG/ML VIAL IV PRN ×3 (02:32→13:00)
[2020-02-17] MEDS: MIDAZOLAM HCL 2 MG/2 ML INJ IV PRN (02:33)
[2020-02-17] MEDS ORDERED: CEFAZOLIN/SWI 1gm 1 GM/10 ML SYR ONE ×3 (02:53→18:20)
[2020-02-17 06:19] LABS: Absolute Lymphocytes (CBC) 1.1 K/uL (0.7-4.9); Basophils % 0.4 % (0-1.3); Hematocrit 29.2 % (39.6-49.0); Lymphocytes % 25.2 % (15.3-44.8); MPV 8.1 fL (7.6-11.3); RBC Red Blood Cell Count 3.61 M/uL (4.33-5.43)
[2020-02-17 06:22] LABS: ALT/SGPT 31 U/L (12-78); AST/SGOT 47 U/L (15-37); Albumin 3.2 g/dL (3.4-5.0); Alkaline Phosphatase 80 U/L (45-117); BUN Blood Urea Nitrogen 10 mg/dL (7-18); Bicarbonate 25 mmol/L (21-32); Bilirubin Total 0.2 mg/dL (0.2-1.0); Glucose Level 82 mg/dL (74-106); Magnesium 2.6 mg/dL (1.8-2.4); Potassium 3.2 mmol/L (3.5-5.1); Protein, Total 6.1 g/dL (6.4-8.2); Sodium Level 142 mmol/L (136-145)
[2020-02-17] MEDS ORDERED: ZIPRASIDONE MESYLA 20 MG/VIAL IM PRN (07:52)
[2020-02-17] MEDS ORDERED: WATER FOR INJ,STERILE 10 ML IM PRN (07:52)
[2020-02-17] MEDS ORDERED: ZIPRASIDONE MESYLA 20 MG/VIAL IM ONE (08:17)
[2020-02-17] MEDS ORDERED: WATER FOR INJ,STERILE 0 ML ONE (08:17)
[2020-02-17 08:49] VITALS: O2SAT 100
[2020-02-17] MEDS: FAMOTIDINE 20 MG/2 ML VIAL IV SCH (09:00)
[2020-02-17] MEDS: CEFAZOLIN/SWI 1gm 1 GM/10 ML SYR IVP SCH ×2 (09:00→17:00)
--- NOTE | 2020-02-17 09:04 | RAD REPORT ---
EXAM DESCRIPTION: RAD - Chest Single View - 02/17/2020 6:44 am CLINICAL HISTORY: intubated Chest pain. COMPARISON: Abdomen 1 View (KUB) dated 02/16/2020; Chest Single View dated 02/16/2020 FINDINGS: Portable technique limits examination quality. The lungs are grossly clear. The heart is normal in size. Tip of the endotracheal tube is above the c elliot.
[2020-02-17] MEDS ORDERED: FAMOTIDINE 20 MG/2 ML VIAL IV ONE (10:44)
--- NOTE | 2020-02-17 14:05 | P.CNS ---
Date of Consult: 02/17/20 Reason for Consult: Respiratory failure Chief Complaint: suicide attempt, intubated History of Present Illness: Changes 29 years of age 3 of suicidal attempts 410 with extreme agitation difficult to control was intubated this morning he appeared to be stable on a propofol drip abused multiple drugs Allergies Unable to Assess Allergy (Verified 02/16/20 19:31) - Past Medical/Surgical History -: Suicidal attempt Review of Systems is unable to be obtained Physical Examination Temp Pulse Resp BP Pulse Ox 97.8 F 107 H 18 132/97 H 98 02/17/20 13:00 02/17/20 13:00 02/17/20 13:00 02/17/20 13:00 02/17/20 13:00 General: Unresponsive Neck: Supple Respiratory: Clear to auscultation bilaterally Cardiovascular: No edema, Regular rate/rhythm - Problems (1) Respiratory failure Current Visit: Yes Status: Acute Plan: Patient is a 29 years of age with a multiple drug abuse multiple history of suicidal attempts with extreme agitation had to be intubated to be restrained labs all unremarkable apart from mild anemia chest x-rays clear plan to Dc the propofol in rapid extubation vital signs stable Qualifiers: Chronicity: acute
--- NOTE | 2020-02-17 18:35 | P.PN ---
Subjective Date of Service: 02/17/20 Chief Complaint: suicide attempt, intubated Subjective: Improving (patient extubated this morning. reports anxiety/panic attacks - worse over the past 2-3 weeks. He was trying to hurt/kill himself. He states he cuts when he has these panic attacks. Vitals ok, slight tachycardia when anxious/agitated. having some pain where he cut himself on arms) Review of Systems 10-point ROS is otherwise unremarkable Physical Examination - Vital Signs Temperature: 97.4 F Blood Pressure: 118/87 Pulse: 102 Respirations: 16 Pulse Ox (%): 97 - Physical Exam General: Alert, In no apparent distress, Oriented x3 HEENT: Sclerae nonicteric Respiratory: Clear to auscultation bilaterally Cardiovascular: No edema, Regular rate/rhythm Gastrointestinal: Soft and benign, Non-distended, No tenderness Integumentary: Other (b/l lacerations on arms. old scars from prior lacerations on L arm. no active bleeding) Neurological: Normal speech, Other (anxious) Assessment & Plan Physician Review Additional Text: Suicide attempt multiple LUE lacerations with bleeding Combative / Agressive anxiety/depression -H/H stable, no longer bleeding -extubated this morning -MR contacted, agree with inpatient psych -info faxed, awaiting call back -pt medically stable for transfer if accepted -pt not sure of all medications he takes - alternates from different benzos when asked VTE: SCDs given bleed Dispo: awaiting inpatient psych acceptance Time Spent Managing Pts Care (In Minutes): 35
[2020-02-17 19:08] VITALS: BP 111/73; TEMP 97.8
[2020-02-17] MEDS ORDERED: ACETAMINOPHEN 500 MG TAB ONE (20:59)
--- NOTE | 2020-02-17 23:13 | P.DS ---
Admission Date: 02/16/20 Discharge Date: 02/17/20 Disposition: TRANSFR TO OTHER-PSY/CD/REHAB Discharge Condition: GOOD Reason for Admission: suicide attempt, intubated Consultations: Pulmonology Dr. Martinez Procedures: Chest x-ray FINDINGS: Endotracheal tube is in place with the tip at the T3-4 level, top of the aortic arch. NG tube extends below the diaphragm with the tip off the field of view. No pulmonary edema or focal lung parenchymal process seen. Heart and vasculature are normal. No measurable pleural effusion and no pneumothorax. No acute bony abnormality seen. No acute aortic findings suspected. IMPRESSION: ET tube and NG tube in good position. No pulmonary edema, failure or other acute chest finding identifiable. KUB FINDINGS: Tip of the nasogastric tube is in the distal stomach. No radiopaque foreign body evident. Brief History of Present Illness: Patient was admitted for suicidal attempt and suicidal ideations after cutting himself and threatening please/EMS. Patient was behaviorally intubated as he was obtained today significant threat to himself and others. Hospital Course: Patient was admitted for suicidal attempt and suicidal ideations after cutting himself and threatening please/EMS. Patient was behaviorally intubated as he was obtained today significant threat to himself and others. Patient remained intubated overnight the 1st night of admission, case was discussed with his mother who reports that he has had many many suicide attempts and hospitalizations for psychiatric disturbance. Patient was extubated this morning and has done well since, is tolerating p.o., alert oriented x3. Patient was evaluated by [facility] and local psychiatrist who both recommended inpatient treatment. Patient had AMBERLY on chart from admission. Patient was initially compliant with the idea of transferred but when EMS showed up decided that he did not want to go, police were contacted to enforce AMBERLY and patient was transferred to [facility] by EMS with police accompaniment. At discharge patient was awake, alert, oriented x3, vital signs stable, tolerating p.o.. Vital Signs/Physical Exam: Temp Pulse Resp BP Pulse Ox 97.8 F 97 H 18 111/73 98 02/17/20 19:00 02/17/20 19:00 02/17/20 19:00 02/17/20 19:00 02/17/20 19:00 General: Alert, In no apparent distress HEENT: Atraumatic, PERRLA Neck: Supple, JVD not distended Respiratory: Clear to auscultation bilaterally, Normal air movement Cardiovascular: Regular rate/rhythm, Normal S1 S2 Gastrointestinal: Normal bowel sounds, No tenderness Musculoskeletal: No tenderness Integumentary: No rashes Neurological: Normal speech, Normal tone, Normal affect Laboratory Data at Discharge: WBC 4.3 K/uL (4.3-10.9) D 02/17/20 05:35 Hgb 9.7 g/dL (13.6-17.9) L 02/17/20 05:35 Hct 29.2 % (39.6-49.0) L 02/17/20 05:35 Plt Count 224 K/uL (152-406) 02/17/20 05:35 PT 13.0 SECONDS (9.5-12.5) H 02/16/20 09:25 INR 1.10 02/16/20 09:25 APTT 29.9 SECONDS (24.3-36.9) 02/16/20 09:25 Sodium 142 mmol/L (136-145) 02/17/20 05:35 Potassium 3.2 mmol/L (3.5-5.1) L 02/17/20 05:35 BUN 10 mg/dL (7-18) 02/17/20 05:35 Creatinine 0.75 mg/dL (0.55-1.3) 02/17/20 05:35 Glucose 82 mg/dL (74-106) 02/17/20 05:35 Magnesium 2.6 mg/dL (1.8-2.4) H 02/17/20 05:35 Total Bilirubin 0.2 mg/dL (0.2-1.0) 02/17/20 05:35 AST 47 U/L (15-37) H 02/17/20 05:35 ALT 31 U/L (12-78) 02/17/20 05:35 Alkaline Phosphatase 80 U/L (45-117) 02/17/20 05:35 Patient Discharge Instructions: Continue with care at inpatient psychiatric facility Diet: Regular Activity: Ad chase Followup: NONE,NONE [Primary Care Provider] - Time spent managing pt's care (in minutes): 55
== END 2020-02-17 21:20 | DRG 208 ==
LOC: ER 09:21 → EDBD 09:21 → MERGE 12:45 → ERHOLD 12:45
PROVIDERS: ADMIT Hospitalist; ATTEND Hospitalist
PROC: 5A1935Z Respiratory Ventilation, Less than 24 Consecutive Hours (ICD-10-PCS; principal; 2020-02-16)
PROC: 0BH17EZ Insertion of Endotracheal Airway into Trachea, Via Natural or Artificial Opening (ICD-10-PCS; 2020-02-16)
DX: J96.00 Acute respiratory failure, unspecified whether with hypoxia or hypercapnia (principal); F41.9 Anxiety disorder, unspecified; F41.0 Panic disorder [episodic paroxysmal anxiety]; F19.10 Other psychoactive substance abuse, uncomplicated; F32.9 Major depressive disorder, single episode, unspecified; D64.9 Anemia, unspecified; R45.1 Restlessness and agitation; S41.112A Laceration without foreign body of left upper arm, initial encounter; T14.91XA Suicide attempt, initial encounter; X78.8XXA Intentional self-harm by other sharp object, initial encounter; Z91.5 Personal history of self-harm; Z20.822 Contact with and (suspected) exposure to COVID-19
CPT/HCPCS: 31500; 36415; 51702; 71045; 74018; 80048; 80053; 80076; 80307; 80320; 80329; 81003; 82947; 83735; 85014; 85018; 85025; 85610; 85730; 86850; 86870; 86900; 86901; 86902; 90471; 90714; 93005; 94002; 94003; 99291; 99292; J0690; J2250; J2704; J3010; J3486; J7030; J7799; U0003

== ENCOUNTER 2020-03-02 18:32 | Emergency (ER) | payer OTHER, SELFPAY ==
[2020-03-02 19:32] LABS: Absolute Lymphocytes (CBC) 1.9 K/uL (0.7-4.9); Basophils % 0.6 % (0-1.3); Hematocrit 35.2 % (39.6-49.0); Lymphocytes % 30.8 % (15.3-44.8); MPV 8.3 fL (7.6-11.3)
[2020-03-02 19:35] LABS: Protime INR 0.93
[2020-03-02 19:41] LABS: Barbiturates NEGATIVE (NEGATIVE); Benzodiazepines NEGATIVE (NEGATIVE); Cocaine NEGATIVE (NEGATIVE); METHAMPHETAM POSITIVE (NEGATIVE); Methadone NEGATIVE (NEGATIVE); Opiates NEGATIVE (NEGATIVE); Phencyclidine NEGATIVE (NEGATIVE); THC Cannibis POSITIVE (NEGATIVE)
[2020-03-02 19:48] LABS: Urine Blood NEGATIVE (NEG); Urine Glucose NEGATIVE (NEG); Urine Protein NEGATIVE (NEG); Urine Specific Gravity 1.025 (1.005-1.030); Urine pH 6.5 (5.0-7.0)
[2020-03-02 19:51] LABS: ALT/SGPT 36 U/L (12-78); AST/SGOT 34 U/L (15-37); Albumin 3.9 g/dL (3.4-5.0); Alkaline Phosphatase 106 U/L (45-117); BUN Blood Urea Nitrogen 5 mg/dL (7-18); Bicarbonate 23 mmol/L (21-32); Bilirubin Direct < 0.1 mg/dL (0-0.2); Bilirubin Total 0.2 mg/dL (0.2-1.0); Glucose Level 102 mg/dL (74-106); Potassium 3.8 mmol/L (3.5-5.1); Protein, Total 7.6 g/dL (6.4-8.2); Sodium Level 143 mmol/L (136-145)
--- NOTE | 2020-03-02 19:56 | RAD REPORT ---
EXAM DESCRIPTION: RAD - Chest Single View - 03/02/2020 7:33 pm CLINICAL HISTORY: COUGH Chest pain. COMPARISON: <Comparisons> FINDINGS: Portable technique limits examination quality. The lungs are grossly clear. The heart is normal in size. No displaced fractures. IMPRESSION: No acute intrathoracic process suspected.
[2020-03-02] MEDS ORDERED: KETOROLAC 30 MG/ML INJ ONE (20:38)
[2020-03-02] MEDS ORDERED: LORazepam 2 MG/ML VIAL ONE (20:38)
[2020-03-02 20:51] LABS: SARS-COV-2 RT PCR NEGATIVE (NEGATIVE)
--- NOTE | 2020-03-02 22:06 | EDPHYS ---
Physician Documentation [facility] Name: Tristen Carbajal Age: 29 yrs Sex: Male : 1990 Arrival Date: 03/02/2020 Time: 18:40 Bed 18 Private MD: JANEY Physician Brady Juarez HPI: 03/02 20:51 This 29 yrs old Male presents to ER via EMS with complaints of Suicidal jr8 Ideation. 20:51 The patient presents to the emergency department with suicide ideation, and the patient jr8 has a plan, to cut oneself and bleed, to hang oneself. Onset: The symptoms/episode began/occurred gradually, 3 day(s) ago. Past psychiatric history: Prior diagnosis: bipolar disorder, depression. Associated signs and symptoms: The patient has no apparent associated signs or symptoms. Severity of symptoms: At their worst the symptoms were moderate in the emergency department the symptoms are unchanged. The patient has experienced similar episodes in the past, several times. The patient has not recently seen a physician. Patient stated that he has been walking for days. Homeless and no were to go. Stated that he usually cuts but cannot bear the pain to complete it. Stated that if he could he would hang himself but could not because he has blisters on his feet and cannot climb a tree to do it . Historical: - Allergies: 18:46 Haldol; tw2 - Home Meds: 18:46 None [Active]; tw2 - PMHx: 18:46 Bipolar disorder; Depression; tw2 - Immunization history:: Adult Immunizations. - Social history:: Smoking status: . ROS: 20:51 Eyes: Negative for injury, pain, redness, and discharge, ENT: Negative for injury, jr8 pain, and discharge, Neck: Negative for injury, pain, and swelling, Cardiovascular: Negative for chest pain, palpitations, and edema, Respiratory: Negative for shortness of breath, cough, wheezing, and pleuritic chest pain, Abdomen/GI: Negative for abdominal pain, nausea, vomiting, diarrhea, and constipation, Back: Negative for injury and pain, MS/Extremity: Negative for injury and deformity, Skin: Negative for injury, rash, and discoloration, Neuro: Negative for headache, weakness, numbness, tingling, and seizure. 20:51 Psych: Positive for depression, suicidal ideation. Exam: 20:51 Constitutional: This is a well developed, well nourished patient who is awake, alert, jr8 and in no acute distress. Eyes: Pupils equal round and reactive to light, extra-ocular motions intact. Lids and lashes normal. Conjunctiva and sclera are non-icteric and not injected. Cornea within normal limits. Periorbital areas with no swelling, redness, or edema. Cardiovascular: Regular rate and rhythm with a normal S1 and S2. No gallops, murmurs, or rubs. Normal PMI, no JVD. No pulse deficits. Respiratory: Lungs have equal breath sounds bilaterally, clear to auscultation and percussion. No rales, rhonchi or wheezes noted. No increased work of breathing, no retractions or nasal flaring. Abdomen/GI: Soft, non-tender, with normal bowel sounds. No distension or tympany. No guarding or rebound. No evidence of tenderness throughout. Back: No spinal tenderness. No costovertebral tenderness. Full range of motion. MS/ Extremity: Pulses equal, no cyanosis. Neurovascular intact. Full, normal range of motion. Neuro: Awake and alert, GCS 15, oriented to person, place, time, and situation. Cranial nerves II-XII grossly intact. Motor strength 5/5 in all extremities. Sensory grossly intact. Cerebellar exam normal. Normal gait. 20:51 Skin: multiple old cutting scars noted to neck and arms . 20:51 Psych: Behavior/mood is cooperative, suicidal, depressed, Affect is calm, Oriented to person, place, time, Patient having thoughts of suicide. Plan for suicide is see hpi Judgement / Insight is normal. Memory is normal. Delusions/hallucinations are not present. Vital Signs: 18:40 BP 129 / 71; Pulse 88; Resp 17; Temp 97.9(TE); Pulse Ox 99% on R/A; tw2 22:00 BP 118 / 68; Pulse 74; Resp 18; Pulse Ox 98% on R/A; wh MDM: 18:53 Patient medically screened. jr8 20:51 Data reviewed: vital signs, nurses notes, lab test result(s). Data interpreted: Pulse jr8 oximetry: on room air is 99 %. Interpretation: normal. Counseling: I had a detailed discussion with the patient and/or guardian regarding: the historical points, exam findings, and any diagnostic results supporting the discharge/admit diagnosis, lab results. 22:06 Differential diagnosis: drug withdrawal. acute psychotic break, depression, psychosis julia secondary to non-compliance. ED course: pt has plan to hurt self, needs and wants help, will transfer. 03/02 18:52 Order name: Acetaminophen [facility] 03/02 18:52 Order name: Basic Metabolic Panel [facility] 03/02 18:52 Order name: CBC with Diff [facility] 03/02 18:52 Order name: ETOH Level [facility] 03/02 18:52 Order name: Hepatic Function [facility] 03/02 18:52 Order name: PT-INR [facility] 03/02 18:52 Order name: Ptt, Activated [facility] 03/02 18:52 Order name: Salicylate [facility] 03/02 18:52 Order name: Urine Drug Screen [facility] 03/02 19:01 Order name: COVID-19 03/02 19:02 Order name: Flu 03/02 19:32 Order name: Urine Dipstick--Ancillary (enter results) [facility] 03/02 19:36 Order name: Protime (+INR); Complete Time: 19:47 EDMO 03/02 19:37 Order name: PTT, Activated Partial Thromb; Complete Time: 19:47 EDMO 03/02 18:52 Order name: EKG; Complete Time: 18:53 [facility] 03/02 19:01 Order name: Chest Single View XRAY 03/02 19:37 Order name: CBC with Automated Diff; Complete Time: 19:47 EDMO 03/02 19:42 Order name: Urine Drug Screen; Complete Time: 19:47 EDMO 03/02 19:42 Order name: Alcohol Serum/Plasma; Complete Time: 19:47 EDMO 03/02 19:49 Order name: Urine Dipstick-Ancillary; Complete Time: 19:54 EDMO 03/02 19:53 Order name: Basic Metabolic Panel; Complete Time: 19:54 EDMS 03/02 19:53 Order name: Liver (Hepatic) Function; Complete Time: 19:54 EDMS 03/02 19:53 Order name: Acetaminophen Level; Complete Time: 19:54 EDMS 03/02 19:53 Order name: Salicylates Level; Complete Time: 19:54 EDMO 03/02 19:57 Order name: RAD; Complete Time: 20:50 EDMS 03/02 19:58 Order name: Influenza Screen (A [facility] 03/02 19:59 Order name: CORONAVIRUS [facility] 03/02 20:51 Order name: COVID-19/FLU A+B; Complete Time: 20:57 [facility] 03/02 18:52 Order name: EKG - Nurse/Tech; Complete Time: 19:24 [facility] 03/02 18:52 Order name: IV Saline Lock; Complete Time: 19:24 [facility] 03/02 18:52 Order name: Labs collected and sent; Complete Time: 19:24 [facility] 03/02 18:52 Order name: Urine Dipstick-Ancillary (obtain specimen); Complete Time: 19:24 [facility] 03/02 22:04 Order name: Wound Care; Complete Time: 03:05 [facility] Administered Medications: 20:30 Drug: TORadol - Ketorolac 15 mg Route: IVP; Site: left antecubital; 03/03 03:10 Follow up: Response: No adverse reaction; Pain is decreased 03/02 20:32 Drug: Ativan 1 mg {Note: RASS 0.} Route: IVP; Site: left antecubital; 03/03 03:10 Follow up: Response: No adverse reaction; RASS: Alert and Calm (0) Disposition: 03/02 22:06 Co-signature as Attending Physician, Brady Juarez MD I agree with the assessment and [facility] plan of care. Disposition: 03/02/20 22:05 Transfer ordered to Psych Facility. Diagnosis are Bipolar disorder, Suicidal ideations. - Reason for transfer: Higher level of care. - Accepting physician is to [facility]. - Condition is Fair. - Problem is new. - Symptoms have improved. Signatures: Dispatcher [employer] Brady Ribeiro MD MD cha Roszak, Josh, PA PA jr8 Carmelina Mendoza RN RN 2 Derian Guerrero RN RN Corrections: (The following items were deleted from the chart) 03/03 03:11 03/02 22:05 03/02/2020 22:05 Transfer ordered to Psych Facility. Diagnosis is Bipolar wh disorder; Suicidal ideations. Reason for transfer: Higher level of care. Accepting physician is to [facility]. Condition is Fair. Problem is new. Symptoms have improved. julia
--- NOTE | 2020-03-02 22:06 | ER ---
Nurse's Notes [facility] Name: Tristen Carbajal Age: 29 yrs Sex: Male : 1990 Arrival Date: 03/02/2020 Time: 18:40 Bed 18 Private MD: Diagnosis: Bipolar disorder;Suicidal ideations Presentation: 03/02 18:40 Chief complaint: EMS states: pt is homeless, reports suicide ideation, states he will tw2 hang himself, has psychiatric history, anxiety, depression, states he was recently at [facility] and they messed up his RIGHT hand and it is swollen, he states he has blisters all over his feet because he has been walking everywhere in town, vs stable. Coronavirus screen: At this time, the client does not indicate any symptoms associated with coronavirus-19. Ebola Screen: Patient denies travel to an Ebola-affected area in the 21 days before illness onset. Initial Sepsis Screen: Does the patient meet any 2 criteria? No. Patient's initial sepsis screen is negative. Does the patient have a suspected source of infection? No. Patient's initial sepsis screen is negative. Risk Assessment: Do you want to hurt yourself or someone else? Patient reports no desire to harm self or others. Onset of symptoms was March 02, 2020. 18:40 Method Of Arrival: EMS: [facility] tw2 18:40 Acuity: LANDY 2 tw2 Triage Assessment: 18:46 General: Appears in no apparent distress. Behavior is cooperative, anxious. Pain: tw2 Complains of pain in right hand, right foot and left foot. EENT: No signs and/or symptoms were reported regarding the EENT system. Neuro: Level of Consciousness is awake, alert, obeys commands, Oriented to person, place, time, situation. Cardiovascular: Cardiovascular: Capillary refill < 3 seconds Patient's skin is warm and dry. Respiratory: Airway is patent Respiratory effort is even, unlabored, Respiratory pattern is regular, symmetrical. GI: No signs and/or symptoms were reported involving the gastrointestinal system. : No signs and/or symptoms were reported regarding the genitourinary system. Derm: multiple various stages of cut estrada b/l arms visible at this time, right hand swollen, pt report blisters on feet has socks on at this time, asked "please do not touch my feet". Musculoskeletal: Range of motion: intact in all extremities. Historical: - Allergies: 18:46 Haldol; tw2 - Home Meds: 18:46 None [Active]; tw2 - PMHx: 18:46 Bipolar disorder; Depression; tw2 - Immunization history:: Adult Immunizations. - Social history:: Smoking status: . Screenin:48 Abuse screen: Denies threats or abuse. Nutritional screening: No deficits noted. tw2 Tuberculosis screening: No symptoms or risk factors identified. Fall Risk None identified. Assessment: 19:10 General: Appears in no apparent distress. Behavior is cooperative. Pain: Complains of pain in right foot and left foot. Neuro: Level of Consciousness is awake, alert, obeys commands, Oriented to person, place, time, situation. Cardiovascular: Capillary refill < 3 seconds. Respiratory: Airway is patent Respiratory effort is even, unlabored, Respiratory pattern is regular, symmetrical. GI: Abdomen is flat, non-distended. : No signs and/or symptoms were reported regarding the genitourinary system. EENT: No signs and/or symptoms were reported regarding the EENT system. Derm: Wound noted Other: Multiple scars from self inflicted lacerations on different stages of healing. Musculoskeletal: Circulation, motion, and sensation intact. 21:00 Reassessment: Patient appears in no apparent distress at this time. No changes from previously documented assessment. Patient and/or family updated on plan of care and expected duration. Pain level reassessed. Patient is alert, oriented x 3, equal unlabored respirations, skin warm/dry/pink. 23:00 Reassessment: Patient appears in no apparent distress at this time. Patient and/or family updated on plan of care and expected duration. Pain level reassessed. Pt sleeping well no signs of distress noted. 23:02 Reassessment: Nurse to Nurse done. 03/03 01:00 Reassessment: Patient appears in no apparent distress at this time. Patient and/or family updated on plan of care and expected duration. Pain level reassessed. Pt sleeping well no signs of distress noted. 03:00 Reassessment: Patient appears in no apparent distress at this time. Patient and/or family updated on plan of care and expected duration. Pain level reassessed. Patient is alert, oriented x 3, equal unlabored respirations, skin warm/dry/pink. Psych: 03/02 19:30 Subjective: Patient's mood is irritable. Objective: Patient is cooperative, Speech is wh normal, Affect is flat, Patient has mutilated themselves by different wound and scars on both arms on different stages of healing. Interventions: Removed personal items and placed in bag. Patient placed in hospital gown. Searched person for dangerous items. Urine collected and sent for urine drug test. Belonging list filled out. Suicide Risk Assessment: Sad Person Scale: Sex of patient: Male: Score 1 point. Age of patient: Score 1 point if patient 15-34. Depression: Score 1 point if signs of depression are present. Previous Attempt: Score 1 point if patient has previously attempted suicide. Substance Abuse: Score 1 point if patient abuses alcohol or drugs. Rational Thinking: Score 1 point if patient is lacking rational thinking. Social Support: Score 1 point if social support is lacking and/or unavailable. Safety Checks: Personal items have been removed. Door is open. No visitors are present at this time. Patient uses marijuana Patient uses methamphetamines. Commitment: Patient will be a voluntary commitment. Vital Signs: 18:40 BP 129 / 71; Pulse 88; Resp 17; Temp 97.9(TE); Pulse Ox 99% on R/A; tw2 22:00 BP 118 / 68; Pulse 74; Resp 18; Pulse Ox 98% on R/A; ED Course: 18:40 Patient arrived in ED. tw2 18:42 Carmelina Mendoza RN is Primary Nurse. tw2 18:46 Triage completed. tw2 18:48 Arm band placed on. tw2 18:51 Carter Soto PA is PHCP. [facility] 18:51 Benji Wisdom MD is Attending Physician. [facility] 19:00 Bed in low position. Report given to ASMITA Menard. tw2 19:22 Inserted saline lock: 22 gauge in left antecubital area, using aseptic technique. Blood rr5 collected. 19:23 Primary Nurse role handed off by Carmelina Mendoza RN [facility] 20:14 Derian Guerrero RN is Primary Nurse. 21:45 Attending Physician role handed off by Benji Wisdom MD [facility] 21:45 Brady Juarez MD is Attending Physician. [facility] 22:49 administrative approval given by Ronald Herrera/ patient has been accepted to [address]/ Dr. Guzmán has accepted the patient in transfer. 03/03 03:08 No provider procedures requiring assistance completed. IV discontinued, intact, bleeding controlled, No redness/swelling at site. Administered Medications: 03/02 20:30 Drug: TORadol - Ketorolac 15 mg Route: IVP; Site: left antecubital; 03/03 03:10 Follow up: Response: No adverse reaction; Pain is decreased 03/02 20:32 Drug: Ativan 1 mg {Note: RASS 0.} Route: IVP; Site: left antecubital; 03/03 03:10 Follow up: Response: No adverse reaction; RASS: Alert and Calm (0) Outcome: 03/02 22:05 ER care complete, transfer ordered by . julia 03/03 03:11 Patient left the ED. 03:11 Transferred by ground EMS Transfer form completed. X-rays sent w/ patient. Note: Report givent to [facility] 03:11 Condition: stable 03:11 Instructed on the need for transfer. Signatures: Brady Juarez MD MD cha Roszak, Josh, PA PA jr8 Carmelina Mendoza, RN RN [facility] Derian Guerrero RN RN Marva Marquez [facility] Edson Hollins, RN RN rr5
[2020-03-03 03:20] VITALS: TEMP 97.9
[2020-03-03 03:22] VITALS: BP 118/68; O2SAT 98
== END 2020-03-03 03:11 ==
LOC: ER 18:32
DX: R45.851 Suicidal ideations (principal); F31.9 Bipolar disorder, unspecified; Z20.822 Contact with and (suspected) exposure to COVID-19; Z88.5 Allergy status to narcotic agent
CPT/HCPCS: 93005; 85025; 80048; 36415; 80320; 80329 ×2; 85610; 80076; 80307 ×8; 85730; 81003; 0240U; 71045; 96375; 96374; 99285

== ENCOUNTER 2020-03-20 16:15 | Emergency (ER) | payer OTHER, SELFPAY ==
[2020-03-20 17:37] LABS: Basophils % 0.6 % (0-1.3); Hematocrit 36.7 % (39.6-49.0); Lymphocytes % 35.3 % (15.3-44.8); MPV 9.3 fL (7.6-11.3); RBC Red Blood Cell Count 4.56 M/uL (4.33-5.43)
[2020-03-20 17:52] LABS: Protime INR 1.11
[2020-03-20 18:01] LABS: ALT/SGPT 35 U/L (12-78); AST/SGOT 21 U/L (15-37); Albumin 4.4 g/dL (3.4-5.0); Alkaline Phosphatase 102 U/L (45-117); BUN Blood Urea Nitrogen 18 mg/dL (7-18); Bicarbonate 24 mmol/L (21-32); Bilirubin Direct < 0.1 mg/dL (0-0.2); Bilirubin Total 0.3 mg/dL (0.2-1.0); Glucose Level 85 mg/dL (74-106); Protein, Total 7.6 g/dL (6.4-8.2); Sodium Level 141 mmol/L (136-145)
[2020-03-20] MEDS ORDERED: LORAZEPAM 1 MG TABLET ONE (18:07)
[2020-03-20] MEDS ORDERED: DIPHENHYDRAMINE 25 MG TAB/CAP ONE (18:08)
[2020-03-20 18:52] LABS: SARS-COV-2 RT PCR NEGATIVE (NEGATIVE)
[2020-03-20 19:37] LABS: Barbiturates NEGATIVE (NEGATIVE); Benzodiazepines NEGATIVE (NEGATIVE); Cocaine NEGATIVE (NEGATIVE); METHAMPHETAM NEGATIVE (NEGATIVE); Methadone NEGATIVE (NEGATIVE); Opiates NEGATIVE (NEGATIVE); Phencyclidine NEGATIVE (NEGATIVE); THC Cannibis POSITIVE (NEGATIVE)
[2020-03-20 20:44] LABS: Urine Blood NEGATIVE (NEG); Urine Glucose NEGATIVE (NEG); Urine Protein NEGATIVE (NEG); Urine Specific Gravity >1.030 (1.005-1.030)
--- NOTE | 2020-03-20 20:59 | EDPHYS ---
Physician Documentation [facility] Name: Tristen Carbajal Age: 29 yrs Sex: Male : 1990 Arrival Date: 03/20/2020 Time: 16:19 Bed 13 Private MD: ED Physician Iron Morgan HPI: 03/20 17:21 This 29 yrs old Male presents to ER via EMS with complaints of Suicidal jmm Ideation, Laceration. 17:21 The patient presents to the emergency department with a history of a suicide gesture, jmm suicide ideation, and the patient has a plan, dobbs PD. Onset: The symptoms/episode began/occurred gradually, 2 day(s) ago. This is a 29 year old male with a history of bipolar disorder,depression that presents to the ED with lacerations to both arms. Patient states he cut himself to get the police to come. Patient states he plan was to dobbs the police officers to get shot. Patient recently discharged from a psych facility and states he can not afford his home medications. . Historical: - Allergies: 16:24 Haldol; ss - Home Meds: 16:24 gabapentin oral oral [Active]; Effexor Oral [Active]; Prozac Oral [Active]; Topamax ss Oral [Active]; - PMHx: 16:24 Bipolar disorder; Depression; ss - Immunization history:: Adult Immunizations up to date, Last tetanus immunization: up to date. - Social history:: Smoking status: Patient reports the use of cigarette tobacco products, smokes one-half pack cigarettes per day. ROS: 17:21 Constitutional: Negative for fever, chills, and weight loss, Cardiovascular: Negative jmm for chest pain, palpitations, and edema, Respiratory: Negative for shortness of breath, cough, wheezing, and pleuritic chest pain, Abdomen/GI: Negative for abdominal pain, nausea, vomiting, diarrhea, and constipation, Back: Negative for injury and pain. 17:21 MS/extremity: Positive for injury or acute deformity. 17:21 Psych: Positive for suicide gesture, suicidal ideation. 17:21 All other systems are negative. 17:21 All other systems are negative. Exam: 17:21 Constitutional: This is a well developed, well nourished patient who is awake, alert, jmm and in no acute distress. Head/Face: atraumatic. Eyes: EOMI, no conjunctival erythema appreciated ENT: Moist Mucus Membranes Neck: Trachea midline, Supple Chest/axilla: Normal chest wall appearance and motion. Cardiovascular: Regular rate and rhythm. No edema appreciated Respiratory: Normal respirations, no respiratory distress appreciated Abdomen/GI: Non distended, soft Back: Normal ROM 17:21 Musculoskeletal/extremity: ROM: intact in all extremities, multiple lacerations noted to the arms bilaterally. 17:21 Skin: multiple lacerations noted to the arms bilaterally. 17:21 Neuro: Orientation: is normal, Mentation: is normal, Memory: is normal. 17:21 Psych: Behavior/mood is pleasant, cooperative. Vital Signs: 16:24 Resp 16; Weight 86.18 kg; Height 5 ft. 6 in. (167.64 cm); Pain 7/10; ss 17:33 BP 135 / 95; Pulse 88; Resp 17; Temp 97.8; Pulse Ox 99% ; ll1 16:24 Body Mass Index 30.67 (86.18 kg, 167.64 cm) ss MDM: 16:53 Patient medically screened. [facility] 20:57 Data reviewed: vital signs, nurses notes. Counseling: I had a detailed discussion with [facility] the patient and/or guardian regarding: the historical points, exam findings, and any diagnostic results supporting the discharge/admit diagnosis, lab results, radiology results, the need to transfer to another facility. ED course: I discussed the patient with Dr. Nguyen whom accepted the patient for transfer. 03/20 16:30 Order name: Acetaminophen [facility] 03/20 16:30 Order name: Basic Metabolic Panel [facility] 03/20 16:30 Order name: CBC with Diff [facility] 03/20 16:30 Order name: ETOH Level; Complete Time: 18:14 [facility] 03/20 16:30 Order name: Hepatic Function; Complete Time: 18:14 [facility] 03/20 16:30 Order name: PT-INR; Complete Time: 19:13 [facility] 03/20 16:30 Order name: Ptt, Activated; Complete Time: 19:13 [facility] 03/20 16:30 Order name: Salicylate; Complete Time: 18:27 [facility] 03/20 16:30 Order name: Urine Drug Screen; Complete Time: 19:47 [facility] 03/20 16:30 Order name: Acetaminophen Level; Complete Time: 18:14 [facility] 03/20 16:30 Order name: Basic Metabolic Panel; Complete Time: 18:14 [facility] 03/20 16:30 Order name: CBC with Automated Diff; Complete Time: 17:44 [facility] 03/20 16:30 Order name: EKG; Complete Time: 16:30 [facility] 03/20 16:30 Order name: EKG - Nurse/Tech; Complete Time: 17:18 [facility] 03/20 16:30 Order name: Labs collected and sent; Complete Time: 17:18 [facility] 03/20 16:30 Order name: Urine Dipstick-Ancillary (obtain specimen); Complete Time: 16:51 [facility] 03/20 17:26 Order name: Diet Finger Food; Complete Time: 17:26 03/20 18:52 Order name: COVID-19/FLU A+B; Complete Time: 19:13 [facility] 03/20 20:09 Order name: Urine Dipstick--Ancillary (enter results) [facility] 03/20 20:10 Order name: Urine Dipstick-Ancillary; Complete Time: 20:54 EDMS Administered Medications: 17:55 Drug: Ativan 1 mg Route: PO; ll1 17:55 Drug: Benadryl 50 mg Route: PO; ll1 Disposition: 03/20/20 20:58 Transfer ordered to Psych Facility. Diagnosis is Suicidal ideations. - Reason for transfer: Higher level of care. - Accepting physician is Dr. Nguyen. - Condition is Stable. - Problem is new. - Symptoms are unchanged. Addendum: 03/28/2020 18:55 Co-signature as Attending Physician, Iron Morgan MD. r n Signatures: Dispatcher [employer] EDKY Mark Anthony PA PA [facility] Iron Morgan MD MD rn Smirch, Shelby, RN RN ss Barry Young, ASMITA RN jb4 Nelli Sánchez RN RN ll1 Corrections: (The following items were deleted from the chart) 03/20 17:18 16:30 IV Saline Lock ordered. [facility] 17:49 17:15 Influenza Screen (A \T\ B)+BA.LAB.BRZ ordered. EDMS EDMS 17:50 17:15 CORONAVIRUS+MR.LAB.BRZ ordered. EDMS EDMS 21:56 20:58 03/20/2020 20:58 Transfer ordered to Psych Facility. Diagnosis is Suicidal jb4 ideations. Reason for transfer: Higher level of care. Accepting physician is Dr. Nguyen. Condition is Stable. Problem is new. Symptoms are unchanged. hever
--- NOTE | 2020-03-20 20:59 | ER ---
Nurse's Notes [facility] Name: Tristen Carbajal Age: 29 yrs Sex: Male : 1990 Arrival Date: 03/20/2020 Time: 16:19 Bed 13 Private MD: Diagnosis: Suicidal ideations Presentation: 03/20 16:19 Chief complaint: EMS states: Found walking on the street with self inflicted ss lacerations to bilateral forearms and neck. No active bleeding noted. PT told EMS that he was not trying to hurt himself, but cause pain. Pt has been off of his medication x 1 weeks. Recently released from [facility]. Coronavirus screen: Client denies travel out of the [place] in the last 14 days. Ebola Screen: Patient denies exposure to infectious person. Patient denies travel to an Ebola-affected area in the 21 days before illness onset. Initial Sepsis Screen: Does the patient meet any 2 criteria? No. Patient's initial sepsis screen is negative. Does the patient have a suspected source of infection? No. Patient's initial sepsis screen is negative. Risk Assessment: Do you want to hurt yourself or someone else? Patient reports no desire to harm self or others. Onset of symptoms is unknown. 16:19 Method Of Arrival: EMS: [facility] 16:19 Acuity: LANDY 2 ss Historical: - Allergies: 16:24 Haldol; ss - Home Meds: 16:24 gabapentin oral oral [Active]; Effexor Oral [Active]; Prozac Oral [Active]; Topamax ss Oral [Active]; - PMHx: 16:24 Bipolar disorder; Depression; ss - Immunization history:: Adult Immunizations up to date, Last tetanus immunization: up to date. - Social history:: Smoking status: Patient reports the use of cigarette tobacco products, smokes one-half pack cigarettes per day. Screenin:19 Abuse screen: Denies threats or abuse. Nutritional screening: No deficits noted. ll1 Tuberculosis screening: No symptoms or risk factors identified. Fall Risk IV access (20 points). Mental Status- Overestimates/Forgets Limitations (15 pts.). Total Brown Fall Scale indicates High Risk Score (45 or more points). Fall prevention measures have been instituted. Side Rails Up X 2 Placed Close to Nursing Station Frequent Obs/Assessments Occuring As available patient and family educated on Fall Prevention Program and Strategies. Assessment: 17:00 General: Appears distressed, Behavior is calm, cooperative, appropriate for age. Pain: ll1 Complains of pain in arms Quality of pain is described as aching. Neuro: Reports suicidal thoughts. Wanted to police to shoot him, hang himself, or cut a major artery to attempt to kill himself. Tried cutting both arms and neck. . Derm: Reports multiple cuts to both arms. small cuts L neck. Injury Description: Abrasion Laceration. 18:35 Reassessment: pt reports if transfer is required he is to go to back to [facility]. 19:00 Reassessment: Patient appears in no apparent distress at this time. Patient and/or jb4 family updated on plan of care and expected duration. Pain level reassessed. Patient is alert, oriented x 3, equal unlabored respirations, skin warm/dry/pink. 20:32 Reassessment: Patient and/or family updated on plan of care and expected duration. Pain jb4 level reassessed. PT is resting comfortable in bed with no s/s of pain or distress noted. Respirations are even and unlabored. 21:55 Reassessment: Patient appears in no apparent distress at this time. Patient and/or jb4 family updated on plan of care and expected duration. Pain level reassessed. Patient is alert, oriented x 3, equal unlabored respirations, skin warm/dry/pink. Transferred via EMS. Psych: 18:19 [place] Suicide Severity Screening: In the past month, have you wished you were ll1 or wished you could go to sleep and not wake up? Patient responds "yes." "In the past month, have you actually had any thoughts of killing yourself?" Patient responds "yes." "In your lifetime, have you ever done anything, started to do anything, or prepared to do anything to end your life?" Patient responds "yes." Patient reports suicidal intent within 3 past months. Subjective: Having thoughts of suicide. Plan for suicide is "Get shot by the police", "hanging", or "cut a major artery.". Objective: Patient is guarded, Speech is normal. Interventions: Removed personal items and placed in bag. Patient placed in hospital gown. Searched person for dangerous items. Suicide Risk Assessment: Sad Person Scale: Sex of patient: Male: Score 1 point. Age of patient: Score 1 point if patient 15-34. Depression: Score 1 point if signs of depression are present. Previous Attempt: Score 1 point if patient has previously attempted suicide. Substance Abuse: Score 1 point if patient abuses alcohol or drugs. Rational Thinking: Score 0 point if patient has rational thinking. Social Support: Score 0 if social support is present/available. Organized Plan: Score 1 point if patient had a plan in place. Relationship: Score 1 point if patient is , , , or for a single male. Safety Checks: Personal items have been removed. Door is open. Commitment: Patient will be a voluntary commitment. Vital Signs: 16:24 Resp 16; Weight 86.18 kg; Height 5 ft. 6 in. (167.64 cm); Pain 7/10; ss 17:33 BP 135 / 95; Pulse 88; Resp 17; Temp 97.8; Pulse Ox 99% ; ll1 16:24 Body Mass Index 30.67 (86.18 kg, 167.64 cm) ED Course: 16:19 Patient arrived in ED. ss 16:22 Triage completed. ss 16:24 Arm band placed on right wrist. 16:27 [facility] 16:27 Iron Morgan MD is Attending Physician. [facility] 16:41 Nelli Sánchez, ASMITA is Primary Nurse. ll1 17:02 Missed attempt(s): 20 gauge in left hand. Bleeding controlled, band aid applied, ll1 catheter tip intact. 17:27 Initial lab(s) drawn, by mt, sent to lab. EKG done, by ED staff, reviewed by Mark BAHENA COVID swab sent to lab. Flu and/or RSV swab sent to lab. Missed attempt(s): 24 gauge in right wrist. Bleeding controlled, band aid applied, catheter tip intact. Patient maintains SpO2 saturation greater than 95% on room air. 17:28 Safety checks: Items removed: yes. Door open/sign placed on door: yes. Family/friend kaleigh present: no. Sitter present: Yes. Placed in gown. Bed in low position. Call light in reach. Side rails up X2. Valuables inventory done. Locked in safe. See valuables checklist. Warm blanket given. Verbal reassurance given. 17:59 Basic Metabolic Panel Sent. 17:59 CBC with Diff Sent. sv 17:59 Acetaminophen Sent. 19:01 faxed chart to [facility]. bd 20:59 administrative approval given by Ronald Herrera/ patient has been accepted to [address]/ Dr. Nguyen has accepted the patient. 21:55 No provider procedures requiring assistance completed. Patient did not have IV access jb4 during this emergency room visit. Administered Medications: 17:55 Drug: Ativan 1 mg Route: PO; ll1 17:55 Drug: Benadryl 50 mg Route: PO; ll1 Outcome: 20:58 ER care complete, transfer ordered by . hever 21:55 Transferred by ground EMS EMS. Transfer form completed. jb4 21:55 Condition: stable 21:55 Discharge instructions given to patient, Instructed on the need for transfer, Demonstrated understanding of instructions. 21:56 Patient left the ED. jb4 Signatures: Verito Rose Stephanie, RN RN González Crandall, RN RN Mark Anthony PA PA jmm Smirch, Shelby, RN RN Barry Young, RN RN jb4 Marva Marquez 2 Rolf Lee 3 Nelli Sánchez, RN RN ll1 Corrections: (The following items were deleted from the chart) 19:58 18:35 Reassessment: pt reports if transfer is required he is to go to back to [facility]
[2020-03-20 23:20] VITALS: BP 135/95; TEMP 97.8; O2SAT 99
--- NOTE | 2020-03-21 18:43 | EKG ---
Test Date: 2020-03-20 Test Time: 17:13:01 Medical Review Specialist: RANDY MEASUREMENT RESULTS: Intervals: Rate: 81 UT: 142 QRSD: 82 QT: 338 QTc: 392 [place]: P: 47 UT: 142 QRS: 63 T: 39 INTERPRETIVE STATEMENTS: Normal sinus rhythm Normal ECG Compared to ECG 03/02/2020 19:28:05 No significant changes Electronically Signed On 03-21-20 18:40:27 LINEMARKER by Jose Daniel
== END 2020-03-20 21:56 ==
LOC: ER 16:15
DX: R45.851 Suicidal ideations (principal); Z20.822 Contact with and (suspected) exposure to COVID-19; F17.210 Nicotine dependence, cigarettes, uncomplicated; F31.9 Bipolar disorder, unspecified
CPT/HCPCS: 93005; 85025; 80048; 36415; 80320; 80329 ×2; 85610; 80076; 80307 ×8; 85730; 81003; 0240U; 99285

== ENCOUNTER 2023-12-03 12:51 | Emergency (ER) | payer OTHER ==
[2023-12-03] MEDS ORDERED: LIDOCAINE 1% 20 ML MDV ONE (13:18)
[2023-12-03] MEDS ORDERED: LORazepam 2 MG/ML VIAL ONE ×2 (13:18→17:26)
[2023-12-03] MEDS ORDERED: NA CHLORIDE 0.9% 250 ML ONE (13:19)
[2023-12-03] MEDS ORDERED: CEFAZOLIN SODIUM 2 GM/VIAL ONE (13:19)
[2023-12-03] MEDS ORDERED: NA CHLORIDE 0.9% 1,000 ML ONE (13:19)
[2023-12-03] MEDS ORDERED: TDAP (DIPHTH,PERTUSS(ACELL),TET VAC) 0.5 ML VIAL IMVAC ONE (13:19)
[2023-12-03 13:52] LABS: Absolute Eosinophils 0.6 K/uL (0-0.5); Absolute Lymphocytes (CBC) 1.6 K/uL (0.7-4.9); Absolute Monocytes 0.5 K/uL (0.1-1.3); Absolute Neutrophil 3.2 K/uL (1.8-8.0); Basophils % 0.7 % (0-1.3); Eosinophils % 10.4 % (0-4.4); Hematocrit 43.5 % (39.6-49.0); Hemoglobin 14.5 g/dL (13.6-17.9); Lymphocytes % 27.5 % (15.3-44.8); MCH 29.3 pg (27.0-35.0); MCHC 33.3 g/dL (32.0-36.0); MCV 88.1 fL (80-100); MPV 7.9 fL (7.6-11.3); Monocytes % 7.7 % (3.3-12.3); Neutrophils % 53.7 % (41.7-73.7); Nucleated Red Blood Cells % 0.2 % (0-0); Platelets 221 thou/uL (152-406); RBC Red Blood Cell Count 4.94 M/uL (4.33-5.43); Red Cell Distribution Width 16.5 % (12.1-15.2)
[2023-12-03 13:54] LABS: PT Prothrombin Time 11.9 SECONDS (9.4-12.5); Protime INR 1.06
[2023-12-03 14:02] LABS: Specific Gravity 1.017 (1.005-1.030); Urine Bilirubin NEGATIVE (Negative); Urine Blood Negative (Negative); Urine Clarity Clear (Clear); Urine Color Colorless (Yellow); Urine Glucose NEGATIVE (Negative); Urine Ketones NEGATIVE (Negative); Urine Microscopic Reflex YN NO UMIC; Urine Nitrite NEGATIVE (Negative); Urine Protein NEGATIVE (Negative); Urine Urobilinogen Normal (Normal)
[2023-12-03 14:12] LABS: ALT/SGPT 25 U/L (16-61); AST/SGOT 23 U/L (15-37); Albumin 3.9 g/dL (3.4-5.0); Albumin/Globulin Ratio 1.1 (1.1-1.8); Alkaline Phosphatase 98 U/L (45-117); Anion Gap 7.1 mEq/L (5.0-15.0); BUN Blood Urea Nitrogen 19 mg/dL (7-18); Barbiturates NEGATIVE (NEGATIVE); Benzodiazepines POSITIVE (NEGATIVE); Bicarbonate 27 mEq/L (21-32); Bilirubin Total 0.3 mg/dL (0.2-1.0); Cocaine NEGATIVE (NEGATIVE); Globulin 3.5 g/dL (2.3-3.5); Glomerular Filtration Rate 120 ml/min (=/>90); Glucose Level 83 mg/dL (74-106); METHAMPHETAM NEGATIVE (NEGATIVE); Methadone NEGATIVE (NEGATIVE); Opiates NEGATIVE (NEGATIVE); Phencyclidine NEGATIVE (NEGATIVE); Potassium 4.1 mEq/L (3.5-5.1); Protein, Total 7.4 g/dL (6.4-8.2); Sodium Level 140 mEq/L (136-145); THC Cannibis POSITIVE (NEGATIVE)
[2023-12-03 14:13] LABS: Bilirubin Direct < 0.2 mg/dL (0-0.2); Bilirubin Indirect, Calculated 0.1 mg/dL (0.2-0.8)
--- NOTE | 2023-12-03 16:50 | ER ---
Nurse's Notes [facility] Name: Tristen Carbajal Age: 33 yrs Sex: Male : 1990 Arrival Date: 12/03/2023 Time: 12:51 Bed 15 Private MD: Diagnosis: Major depressive disorder, recurrent, moderate;Bipolar disorder, unspecified;Suicidal ideations;Suicide attempt;Laceration without foreign body of right forearm Presentation: 12/02 13:03 Acuity: LANDY 2 iw 13:03 Chief complaint: [facility] [place] reports pt got into an argument with his girlfriend and cut his right arm with a razor blade and cut both sides of his neck. Coronavirus screen: At this time, the client does not indicate any symptoms associated with coronavirus-19. Ebola Screen: No symptoms or risks identified at this time. Initial Sepsis Screen: Does the patient meet any 2 criteria? No. Patient's initial sepsis screen is negative. Does the patient have a suspected source of infection? No. Patient's initial sepsis screen is negative. Risk Assessment: Do you want to hurt yourself or someone else? Patient reports desire/thoughts of hurting themselves or someone else. Provider notified. 13:03 Method Of Arrival: Law Enforcement: Mental Health iw 13:21 Onset of symptoms was December 03, 2023. Triage Assessment: 13:03 General: Appears in no apparent distress. uncomfortable, Behavior is cooperative, rs5 anxious. Historical: - Allergies: 13:17 Haldol; iw - PMHx: 13:17 Bipolar disorder; Depression; iw - Immunization history:: Adult Immunizations up to date. - Infectious Disease History:: Denies. - Social history:: Smoking status: Patient reports the use of cigarette tobacco products, smokes one-half pack cigarettes per day. Screenin:05 [facility] ED Fall Risk Assessment (Adult) History of falling in the last 3 months, iw including since admission No falls in past 3 months (0 pts) Confusion or Disorientation No (0 pts) Intoxicated or Sedated No (0 pts) Impaired Gait No (0 pts) Mobility Assist Device Used No (0 pt) Altered Elimination No (0 pt) Score/Fall Risk Level 0 - 2 = Low Risk Oriented to surroundings, Maintained a safe environment. 13:05 Abuse screen: Denies threats or abuse. Nutritional screening: No deficits noted. iw Tuberculosis screening: No symptoms or risk factors identified. Assessment: 13:03 Reassessment: to bedside for C-SSRS screening, pt reports suicidal ideation, provider rs5 notified, sitter at bedside . 13:05 General: Appears in no apparent distress. uncomfortable, Behavior is cooperative, rs5 agitated, anxious. 13:05 Pain: Denies pain. Neuro: Level of Consciousness is awake, alert, obeys commands. rs5 Cardiovascular: Patient's skin is warm and dry. Respiratory: Airway is patent Respiratory effort is even, unlabored, Respiratory pattern is regular, symmetrical. GI: Abdomen is round non-distended, Abd is soft and non tender X 4 quads. : No signs and/or symptoms were reported regarding the genitourinary system. EENT: No signs and/or symptoms were reported regarding the EENT system. Derm: Skin is intact, Skin is pink, warm \\T\\ dry. three lacerations noted to right inner forearm, two lacerations noted to sides of neck bilat, no active bleeding noted. 13:05 Musculoskeletal: Range of motion: intact in all extremities. rs5 14:10 Reassessment: Patient and/or family updated on plan of care and expected duration. Pain rs5 level reassessed. Patient is alert, oriented x 3, equal unlabored respirations, skin warm/dry/pink. 15:15 Reassessment: Patient and/or family updated on plan of care and expected duration. Pain rs5 level reassessed. Patient is alert, oriented x 3, equal unlabored respirations, skin warm/dry/pink. sitter remains at bedside . 16:20 Reassessment: Patient and/or family updated on plan of care and expected duration. Pain rs5 level reassessed. Patient is alert, oriented x 3, equal unlabored respirations, skin warm/dry/pink. 17:20 Reassessment: Patient and/or family updated on plan of care and expected duration. Pain rs5 level reassessed. Patient is alert, oriented x 3, equal unlabored respirations, skin warm/dry/pink. 18:20 Reassessment: Patient and/or family updated on plan of care and expected duration. Pain rs5 level reassessed. Patient is alert, oriented x 3, equal unlabored respirations, skin warm/dry/pink. 18:30 Reassessment: report given to EMS at bedside for transport . rs5 Psych: 13:03 Safety Checks: Personal items have been removed. Door is open. No visitors are present rs5 at this time. 13:03 Pt denies substance abuse. Commitment: Patient will be a voluntary commitment. rs5 Commitment papers completed. 13:06 [place] Suicide Severity Screening: In the past month, have you wished you were iw or wished you could go to sleep and not wake up? Patient responds "yes." Based off the client's responses additional C-SSRS screening is required. "In the past month, have you actually had any thoughts of killing yourself?" Patient responds "yes." Based off the client's response additional [place] suicide severity screening questions to be further documented on paper forms. "In your lifetime, have you ever done anything, started to do anything, or prepared to do anything to end your life?" Patient responds "yes." Patient reports suicidal intent within 3 past months. Subjective: Patient's mood is angry, Having thoughts of suicide. Plan for suicide is cut himself, OD on heroin. Objective: Patient is defensive, Speech is rapid, Patient has mutilated themselves by multiple superficial and deep lacerations to right forearm, superficial laceration to ana neck. Interventions: Removed personal items and placed in bag. Urine collected and sent for urine drug test. Vital Signs: 13:18 BP 111 / 91; Pulse 97; Resp 18; Temp 98.1; Pulse Ox 97% on R/A; iw 18:30 BP 115 / 84; Pulse 74; Resp 17; Temp 98(O); Pulse Ox 99% on R/A; rs5 ED Course: 13:03 Patient arrived in ED. bd 13:05 Patient has correct armband on for positive identification. Placed in gown. Bed in low iw position. Call light in reach. Side rails up X2. 13:05 No provider procedures requiring assistance completed. iw 13:06 Arm band placed on Patient placed in an exam room, on a stretcher. iw 13:13 Brady Juarez MD is Attending Physician. julia 13:17 Charan Montiel, RN is Primary Nurse. rs5 13:17 Triage completed. iw 13:32 Acetaminophen Sent. bc6 13:33 Basic Metabolic Panel Sent. bc6 13:33 CBC with Diff Sent. bc6 13:33 ETOH Level Sent. bc6 13:33 Hepatic Function Sent. bc6 13:33 PT-INR Sent. bc6 13:33 Ptt, Activated Sent. bc6 13:33 Salicylate Sent. bc6 13:33 Initial lab(s) drawn, by ms, sent to lab. Inserted saline lock: 20 gauge in right bc6 antecubital area, using aseptic technique. Blood collected. Flushed with 10 mL NS. 16:53 faxed chart to [facility]. bd 17:09 faxed chart to [facility]. bd 17:25 pt accepted in transfer to [facility] by Dr Asencio, admin approval given by Sylwia Infante. 18:30 Provided Education on: need for transfer . rs5 18:31 IV discontinued, intact, bleeding controlled, No redness/swelling at site. Pressure rs5 dressing applied. Administered Medications: 13:30 Drug: Boostrix Tdap IM 0.5 ml IM once; as a single dose Route: IM; Site: left deltoid; iw 14:00 Follow up: Response: No adverse reaction rs5 13:30 Drug: NS 0.9% IV 1000 ml IV at 1000 ml once; to be given as a bolus over 60 minutes iw Route: IV; Rate: 1000 ml; Site: right antecubital; 14:20 Follow up: Response: No adverse reaction; IV Status: Completed infusion rs5 13:30 Drug: ceFAZolin IVPB 2 grams IVPB once over 30 mins; (mix in 100 mL NS) Route: IVPB; iw Infused Over: 30 mins; Site: right antecubital; 14:00 Follow up: Response: No adverse reaction rs5 14:00 Follow up: IV Status: Completed infusion iw 13:30 Drug: Ativan IVP 1 mg IVP once Route: IVP; Site: right antecubital; iw 14:00 Follow up: Response: No adverse reaction; Anxiety decreased rs5 13:30 Drug: Ativan IVP 1 mg IVP once Route: IVP; Site: right antecubital; iw 14:00 Follow up: Response: No adverse reaction; Anxiety decreased rs5 14:00 Drug: Lidocaine Infiltration (1 %) 20 ml 20 ml Infiltration once; to bedside {Note: adm rs5 by provider at bedside .} Volume: 20 ml; Route: Infiltration; 14:30 Follow up: Response: No adverse reaction rs5 17:30 Drug: Ativan IVP 1 mg IVP once Route: IVP; Site: right antecubital; rs5 18:00 Follow up: Response: No adverse reaction; Anxiety decreased rs5 17:30 Drug: Nicoderm CQ Transdermal Patch 21 mg/24 hr 1 patches Transdermal once Route: rs5 Transdermal; Site: left thigh; 18:00 Follow up: Response: No adverse reaction rs5 17:45 Drug: Ativan IVP 1 mg IVP once Route: IVP; Site: right antecubital; rs5 18:00 Follow up: Response: No adverse reaction; Anxiety decreased rs5 Medication: 18:00 VIS not applicable for this client. rs5 Outcome: 16:50 ER care complete, transfer ordered by . julia 18:31 Transferred by ground EMS Transfer form completed. rs5 18:31 Condition: stable rs5 18:31 Discharge instructions given to patient, Instructed on the need for transfer, Demonstrated understanding of instructions, 18:31 [facility]red [facility]. Note: [facility] iw 18:34 Patient left the ED. db Signatures: Verito Rose Corey, MD MD cha Williams, Irene, RN RN Mary Rodriguez RN RN Charan Malagon, ASMITA RN rs5 Zora Gomes 6 Corrections: (The following items were deleted from the chart) 18:39 13:05 General: Appears in no apparent distress. uncomfortable, Behavior is cooperative, rs5 agitated, anxious, rs5 18:43 18:40 BP 115 / 84; Pulse 74bpm; Resp 17bpm; Pulse Ox 99% RA; Temp 98F Oral; rs5 rs5 19:19 18:31 Instructed on the need for transfer, Demonstrated understanding of instructions, iw rs5
--- NOTE | 2023-12-03 16:50 | EDPHYS ---
Physician Documentation [facility] Name: Tristen Carbajal Age: 33 yrs Sex: Male : 1990 Arrival Date: 12/03/2023 Time: 12:51 Bed 15 Private MD: ED Physician Brady Juarez HPI: 12/02 16:39 This 33 yrs old Male presents to ER via Law [employer] with complaints of julia Psych Problem, Laceration To Arm. 16:39 The patient presents to the emergency department with depression, a history of a [facility] suicide gesture, suicide ideation, and the patient has a plan, to cut oneself and bleed. Onset: The symptoms/episode began/occurred just prior to arrival. Past psychiatric history: Prior diagnosis: bipolar disorder, depression, Psychiatric medications include: see list. Associated signs and symptoms: Pertinent positives; depression, suicide ideation. Severity of symptoms: At their worst the symptoms were mild moderate in the emergency department the symptoms are unchanged. The patient has experienced similar episodes in the past, multiple times. Historical: - Allergies: 13:17 Haldol; iw - PMHx: 13:17 Bipolar disorder; Depression; iw - Immunization history:: Adult Immunizations up to date. - Infectious Disease History:: Denies. - Social history:: Smoking status: Patient reports the use of cigarette tobacco products, smokes one-half pack cigarettes per day. ROS: 16:42 Constitutional: Negative for fever, chills, and weight loss, Eyes: Negative for injury, julia pain, redness, and discharge, ENT: Negative for injury, pain, and discharge, Neck: Negative for injury, pain, and swelling, Cardiovascular: Negative for chest pain, palpitations, and edema, Respiratory: Negative for shortness of breath, cough, wheezing, and pleuritic chest pain, Abdomen/GI: Negative for abdominal pain, nausea, vomiting, diarrhea, and constipation, Back: Negative for injury and pain, : Negative for injury, bleeding, discharge, and swelling, Neuro: Negative for headache, weakness, numbness, tingling, and seizure, Allergy/Immunology: Negative for hives, rash, and allergies, Endocrine: Negative for neck swelling, polydipsia, polyuria, polyphagia, and marked weight changes, Hematologic/Lymphatic: Negative for swollen nodes, abnormal bleeding, and unusual bruising, 16:42 MS/extremity: Positive for laceration, pain, of the right arm, 16:42 Skin: Positive for laceration(s), Exam: 16:42 Constitutional: This is a well developed, well nourished patient who is awake, alert, julia and in no acute distress. Head/Face: Normocephalic, atraumatic. Eyes: Pupils equal round and reactive to light, extra-ocular motions intact. Lids and lashes normal. Conjunctiva and sclera are non-icteric and not injected. Cornea within normal limits. Periorbital areas with no swelling, redness, or edema. ENT: Nares patent. No nasal discharge, no septal abnormalities noted. Tympanic membranes are normal and external auditory canals are clear. Oropharynx with no redness, swelling, or masses, exudates, or evidence of obstruction, uvula midline. Mucous membranes moist. Neck: Trachea midline, no thyromegaly or masses palpated, and no cervical lymphadenopathy. Supple, full range of motion without nuchal rigidity, or vertebral point tenderness. No Meningismus. Chest/axilla: Normal chest wall appearance and motion. Nontender with no deformity. No lesions are appreciated. Cardiovascular: Regular rate and rhythm with a normal S1 and S2. No gallops, murmurs, or rubs. Normal PMI, no JVD. No pulse deficits. Respiratory: Lungs have equal breath sounds bilaterally, clear to auscultation and percussion. No rales, rhonchi or wheezes noted. No increased work of breathing, no retractions or nasal flaring. Abdomen/GI: Soft, non-tender, with normal bowel sounds. No distension or tympany. No guarding or rebound. No evidence of tenderness throughout. Back: No spinal tenderness. No costovertebral tenderness. Full range of motion. Male : Normal genitalia with no discharge or lesions. Neuro: Awake and alert, GCS 15, oriented to person, place, time, and situation. Cranial nerves II-XII grossly intact. Motor strength 5/5 in all extremities. Sensory grossly intact. Cerebellar exam normal. Normal gait. 16:42 ECG was reviewed by the Attending Physician. 16:42 Musculoskeletal/extremity: ROM: full active range of motion, full passive range of motion, Circulation is intact in all extremities. Sensation intact. multiple lacerations, self inflicted right forearm Compartment Syndrome exam of affected extremity: is normal. Tendon exam: specific tendon testing normal through active and passive range of motion DVT Exam: negative Homans' sign noted on exam, no appreciated bluish discoloration, no erythema, no increased warmth, pain, swelling, tenderness, Vital Signs: 13:18 BP 111 / 91; Pulse 97; Resp 18; Temp 98.1; Pulse Ox 97% on R/A; iw 18:30 BP 115 / 84; Pulse 74; Resp 17; Temp 98(O); Pulse Ox 99% on R/A; rs5 Laceration: 16:46 Wound Repair of 4cm ( 1.6in ) subcutaneous laceration to right arm. Linear shaped.. julia Distal neuro/vascular/tendon intact. Anesthesia: Wound infiltrated with 5 mls of 1% lidocaine. Wound prep: Simple cleansing by me. Skin closed with 3 nicholas Nicholas using staple gun. Dressed with Neosporin, non-adherent dressing. Patient tolerated well. 16:46 Wound Repair of 4cm ( 1.6in ) subcutaneous laceration to right arm. Irregularly julia shaped.. Distal neuro/vascular/tendon intact. Anesthesia: Wound infiltrated with 8 mls of 1% lidocaine. Wound prep: Simple cleansing with betadine by me. Skin closed with 4 nicholas Warren using staple gun. Dressed with non-adherent dressing. Patient tolerated well. MDM: 13:13 Medical Screening Exam initiated julia 16:44 Differential diagnosis: abrasion, drug withdrawal. acute psychotic break, depression, julia psychosis secondary to non-compliance. Data reviewed: vital signs, nurses notes, lab test result(s), EKG. Consideration of Admission/Observation Escalation of care including admission/observation considered. I considered the following discharge prescriptions or medication management in the emergency department Medications were administered in the Emergency Department. See MAR. Independent interpretation of the following test(s) in the Emergency Department EKG: See my EKG interpretation above. Test considered but Not performed: CT: no ct brain. Historians other than the Patient: EMS: ems well informed. Care significantly affected by the following chronic conditions: bipolar do, depression. Counseling: I had a detailed discussion with the patient and/or guardian regarding the historical points, exam findings, and any diagnostic results supporting the discharge/admit diagnosis, lab results, the need to transfer to another facility, for higher level of care, [facility] does not immediately have the required specialist. 12/02 13:15 Order name: Acetaminophen; Complete Time: 16:39 julia 12/02 13:15 Order name: Basic Metabolic Panel; Complete Time: 16:39 julia 12/02 13:15 Order name: CBC with Diff; Complete Time: 16:39 12/02 13:15 Order name: ETOH Level; Complete Time: 16:39 12/02 13:15 Order name: Hepatic Function; Complete Time: 16:39 12/02 13:15 Order name: PT-INR; Complete Time: 16:39 12/02 13:15 Order name: Ptt, Activated; Complete Time: 16:39 julia 12/02 13:15 Order name: Salicylate; Complete Time: 16:39 [facility] 12/02 13:15 Order name: Urinalysis w/ reflexes; Complete Time: 16:39 [facility] 12/02 13:15 Order name: Urine Drug Screen; Complete Time: 16:39 [facility] 12/02 13:15 Order name: EKG; Complete Time: 13:15 12/02 13:15 Order name: EKG - Nurse/Tech; Complete Time: 13:36 [facility] 12/02 13:15 Order name: IV Saline Lock; Complete Time: 13:33 [facility] 12/02 13:15 Order name: Labs collected and sent; Complete Time: 13:33 [facility] 12/02 13:15 Order name: Suicide Precautions; Complete Time: 13:36 [facility] 12/02 13:15 Order name: Suicide Screening ([place]); Complete Time: 13:37 [facility] 12/02 13:15 Order name: Dressing - Wound; Complete Time: 13:36 [facility] 12/02 13:15 Order name: Gloves, Sterile; Complete Time: 13:36 [facility] 12/02 13:15 Order name: Prolene, Sutures; Complete Time: 13:36 [facility] 12/02 13:15 Order name: Setup Suture Tray; Complete Time: 13:36 [facility] EC:42 Rate is 65 beats/min. Rhythm is regular. QRS [place] is Normal. [place] interval is normal. QRS julia interval is normal. QT interval is normal. No Q waves. T waves are Normal. No ST changes noted. Clinical impression: NSR w/ Non-specific ST/T Changes and No evidence of ischemia. Interpreted by me. Reviewed by me. Administered Medications: 13:30 Drug: Boostrix Tdap IM 0.5 ml IM once; as a single dose Route: IM; Site: left deltoid; iw 14:00 Follow up: Response: No adverse reaction rs5 13:30 Drug: NS 0.9% IV 1000 ml IV at 1000 ml once; to be given as a bolus over 60 minutes iw Route: IV; Rate: 1000 ml; Site: right antecubital; 14:20 Follow up: Response: No adverse reaction; IV Status: Completed infusion rs5 13:30 Drug: ceFAZolin IVPB 2 grams IVPB once over 30 mins; (mix in 100 mL NS) Route: IVPB; iw Infused Over: 30 mins; Site: right antecubital; 14:00 Follow up: Response: No adverse reaction rs5 14:00 Follow up: IV Status: Completed infusion iw 13:30 Drug: Ativan IVP 1 mg IVP once Route: IVP; Site: right antecubital; iw 14:00 Follow up: Response: No adverse reaction; Anxiety decreased rs5 13:30 Drug: Ativan IVP 1 mg IVP once Route: IVP; Site: right antecubital; iw 14:00 Follow up: Response: No adverse reaction; Anxiety decreased rs5 14:00 Drug: Lidocaine Infiltration (1 %) 20 ml 20 ml Infiltration once; to bedside {Note: adm rs5 by provider at bedside .} Volume: 20 ml; Route: Infiltration; 14:30 Follow up: Response: No adverse reaction rs5 17:30 Drug: Ativan IVP 1 mg IVP once Route: IVP; Site: right antecubital; rs5 18:00 Follow up: Response: No adverse reaction; Anxiety decreased rs5 17:30 Drug: Nicoderm CQ Transdermal Patch 21 mg/24 hr 1 patches Transdermal once Route: rs5 Transdermal; Site: left thigh; 18:00 Follow up: Response: No adverse reaction rs5 17:45 Drug: Ativan IVP 1 mg IVP once Route: IVP; Site: right antecubital; rs5 18:00 Follow up: Response: No adverse reaction; Anxiety decreased rs5 Disposition Summary: 12/03/23 16:50 Transfer Ordered Notes: Transfer Location: Psych Facility julia Reason: Higher level of care julia Condition: Stable julia Problem: new julia Symptoms: have improved julia Accepting Physician: to psych(12/03/23 18:34) db Diagnosis - Major depressive disorder, recurrent, moderate julia - Bipolar disorder, unspecified julia - Suicidal ideations julia - Suicide attempt julia - Laceration without foreign body of right forearm julia Forms: - Medication Reconciliation Form julia - SBAR form julia Signatures: Dispatcher [employer] EDBrady Conway MD MD cha Williams, Irene, RN RN iw Mary Helms RN RN Charan Malagon RN RN rs5 Corrections: (The following items were deleted from the chart) 18:34 16:50 to psych julia db
[2023-12-03] MEDS ORDERED: NICOTINE 21 MG/PAT TD ONE (17:26)
[2023-12-04 01:35] VITALS: BP 111/91; TEMP 98.1; O2SAT 97
--- NOTE | 2023-12-04 12:17 | EKG ---
Test Date: 2023-12-03 Test Time: 13:30:51 [employer] Helper: VIJAY MEASUREMENT RESULTS: Intervals: Rate: 65 W[place]: 162 QRSD: 88 QT: 366 QTc: 380 [place]: P: 57 W[place]: 162 QRS: 84 T: 32 INTERPRETIVE STATEMENTS: Normal sinus rhythm Normal ECG Compared to ECG 03/20/2020 17:13:01 No significant changes Electronically Signed On 12-04-23 12:13:19 CDT by José Miguel Herman
== END 2023-12-03 18:34 ==
LOC: ER 12:51
DX: S51.811A Laceration without foreign body of right forearm, initial encounter (principal); X78.9XXA Intentional self-harm by unspecified sharp object, initial encounter; F33.1 Major depressive disorder, recurrent, moderate
CPT/HCPCS: 85025; 80048; 36415; 85610; 80076; 85730; 81003; 80307; 80143; 80179; 82077; 12004; J2001; J7050; J7030; 93005